=== PATIENT | male | born 1955 | race African-American/Black ===

== ENCOUNTER 2018-10-15 09:02 | Inpatient (IN) ==
[2018-10-15] MEDS ORDERED: NS 1,000 ML ONE (09:05)
[2018-10-15] MEDS ORDERED: ZOFRAN IV ONE (09:05)
[2018-10-15] MEDS ORDERED: NS 1,000 ML IV ONE ×4 (09:05→12:52)
[2018-10-15] MEDS ORDERED: ZOFRAN ONE (09:06)
[2018-10-15 09:35] LABS: HEMATOCRIT 37.7 % (42.0-52.0); HEMOGLOBIN 13.3 g/dL (14.0-18.0); IMM GRAN# 0.02 X1000 (0.0-0.04); IMM GRAN% 0.3 % (0.0-0.5); LYMPH# 0.54 X1000 (1.2-3.4); MCH 31.7 PG (27-31); MCHC 35.3 g/dL (33-37); MCV 89.8 FL (81-99); MONO# 0.22 X1000 (0.11-0.59); MONO% 3.7 % (1.7-9.3); MPV 9.2 FL (7.4-10.4); NEUT# 5.21 X1000 (1.4-6.5); PLT 182 X1000 (130-400); RDW 16.3 % (11.5-14.5); WBC 5.99 X1000 (4.8-10.8)
--- NOTE | 2018-10-15 09:38 | Diag Imaging Result Doc PS360 ---
EXAM: CHEST-PORTABLE - 10/15/2018 HISTORY: ams TECHNIQUE: Portable chest COMPARISON: 04/26/2018 FINDINGS: Heart size is normal. There is ill-defined mild infiltrate or atelectasis at the left base. The remainder of the lungs appear clear. There is no pleural effusion or pneumothorax identified. There is old fracture deformity of the posterior left seventh rib which is stable. IMPRESSION: Mild infiltrate or atelectasis at left base. Electronically signed by Austin Renee 10/15/2018 9:35 AM
[2018-10-15 09:46] LABS: INR 1.01; PROTIME 13.8 Seconds (11.0-16.0)
--- NOTE | 2018-10-15 09:46 | Diag Imaging Result Doc PS360 ---
EXAM: CT HEAD/C-SPINE W/O CONTRAST - 10/15/2018 HISTORY: ams/fall TECHNIQUE: CT head/cervical spine without contrast COMPARISON: 04/26/2018 CT head FINDINGS: CT head: There is no evidence of intracranial hemorrhage, mass effect, midline shift, or hydrocephalus. There is no evidence of infarct, although acute infarcts may not be immediately visible. There is no evidence of skull fracture. CT cervical spine: There is multilevel degenerative disease. There is no fracture, subluxation, or precervical soft tissue swelling identified. There are atherosclerotic calcifications noted of the bilateral carotid bulb regions. IMPRESSION: CT head: No visible acute intracranial abnormality. No evidence of intracranial injury. CT cervical spine: Multilevel degenerative disease. No evidence of fracture or subluxation. This exam was performed using automated exposure control, adjustment of mA or kV according to patient size, and/or use of iterative reconstruction technique. Electronically signed by Austin Renee 10/15/2018 9:44 AM
[2018-10-15 09:47] LABS: PTT 27.5 Seconds (22.3-41.8)
[2018-10-15 09:48] LABS: ALBUMIN 4.3 g/dL (3.5-5.0); CALCIUM 9.1 mg/dL (8.8-10.2); CREATININE 2.8 mg/dL (0.7-1.2); TOTAL BILIRUBIN 0.3 mg/dL (0.20-1.00); TOTAL PROTEIN 6.8 g/dL (6.3-8.3)
[2018-10-15 10:13] LABS: CK INDEX 0.1 (0.0-2.5); CK-MB 7.71 ng/mL (0.0-5.0)
[2018-10-15] MEDS ORDERED: ROCEPHIN 1 GM in NS 50 ML IV ONE (10:40)
[2018-10-15 10:57] LABS: BLOOD TYPE ARTERIAL; HCO3-(ACT) 16.3 mmoll (20.0-26.0); METHB 0.4 % (0.0-1.5); O2(CT) 17.8 mL/dL (15.0-23.0); O2HB 94.1 % (95.0-99.0); PCO2(98.6) 26 mmHg (35-45); PO2(98.6) 86 mmHg (60-100); SAMPLE BLOOD; SAO2 98.3 % (95.0-100.0); THB 13.4 g/dL (11.5-17.4); pH(98.6) 7.32 (7.35-7.45)
[2018-10-15 11:00] LABS: ALLEN TEST YES; MODALITY CANNULA
[2018-10-15] MEDS ORDERED: NS 300 ML IV ONE (11:07)
[2018-10-15] MEDS ORDERED: NS 500 ML IV ONE (11:07)
--- NOTE | 2018-10-15 11:13 | EKG Report ---
Test Performed on : 10/15/2018 09:35:32 AM Test Reason : ams Blood Pressure : / mmHG Vent. Rate : 110 BPM Atrial Rate : 110 BPM P-R Int : 146 ms QRS Dur : 090 ms QT Int : 374 ms P-R-T Axes : 091 063 025 degrees QTc Int : 506 ms Sinus tachycardia. Otherwise normal ECG When compared with ECG of 25-FEB-2017 09:57, QT has lengthened Unconfirmed Result
[2018-10-15 11:41] LABS: URINE SOURCE CATH
[2018-10-15 11:48] LABS: BILIRUBIN URINE NEGATIVE (NEGATIVE); BLOOD URINE 4+ (NEGATIVE); CLARITY CLEAR (CLEAR); COLOR YELLOW; GLUCOSE URINE NEGATIVE (NEGATIVE); KETONE URINE TRACE mg/dL (NEGATIVE); LEUKOCYTES URINE TRACE (NEGATIVE); NITRITE URINE NEGATIVE (NEGATIVE); PROTEIN URINE 1+(30 mg/dL) mg/dL (NEGATIVE); URINE BACTERIA 3+ /HFP; URINE CAST NONE SEEN /LPF; URINE CRYSTAL NONE SEEN /HPF; URINE EPITHELIAL CELLS <10 /HPF (<10); URINE RBC <10 /HPF (<10); URINE WBC <10 /HPF (<10); URINE YEAST NONE SEEN /HPF; UROBILINOGEN URINE NORMAL
[2018-10-15 11:53] LABS: UR AMPHETAMINES QUAL NONE DETECTED (NONE DETECT); UR BARBITUATES QUAL NONE DETECTED (NONE DETECT); UR BENZODIAZEPIN QUAL NONE DETECTED (NONE DETECT); UR CANNABINOIDS QUAL PRESUMPTIVE POSITIVE (NONE DETECT); UR COCAINE QUAL NONE DETECTED (NONE DETECT); UR METHADONE QUAL NONE DETECTED (NONE DETECT); UR METHAMPHETAMINE QUAL NONE DETECTED (NONE DETECT); UR OPIATES QUAL NONE DETECTED (NONE DETECT); UR OXYCODONE QUAL NONE DETECTED (NONE DETECT); UR PCP QUAL NONE DETECTED (NONE DETECT); UR PROPOXYPHENE QUAL NONE DETECTED (NONE DETECT); UR TCA QUAL PRESUMPTIVE POSITIVE (NONE DETECT)
[2018-10-15] MEDS ORDERED: NS 1,000 ML IV SCH (12:30)
[2018-10-15] MEDS ORDERED: TYLENOL PO ONE (12:51)
[2018-10-15] MEDS: ZOSYN 2.25 GM in NS 50 ML IV SCH ×2 (13:01→19:37)
[2018-10-15] MEDS: ZYVOX 600 MG/D5W 600 MG/300 ML IVPB IV SCH ×2 (13:01→23:38)
[2018-10-15 13:13] LABS: CK INDEX 0.7 (0.0-2.5); CK-MB 71.79 ng/mL (0.0-5.0)
[2018-10-15] MEDS: ZOFRAN IV PRN ×2 (13:21→19:38)
[2018-10-15] MEDS: NS 1,000 ML IV SCH ×2 (13:25→20:22)
[2018-10-15] MEDS ORDERED: ROBAXIN PO PRN (13:26)
[2018-10-15] MEDS ORDERED: ATIVAN IV PRN (13:26)
[2018-10-15] MEDS ORDERED: ATARAX PO PRN (13:26)
[2018-10-15] MEDS ORDERED: BENTYL PO PRN (13:26)
[2018-10-15] MEDS: LIBRIUM PO SCH ×2 (13:38→20:23)
--- NOTE | 2018-10-15 14:10 | EKG Report ---
Test Performed on : 10/15/2018 1:57:50 PM Test Reason : repeat Blood Pressure : / mmHG Vent. Rate : 105 BPM Atrial Rate : 105 BPM P-R Int : 156 ms QRS Dur : 106 ms QT Int : 382 ms P-R-T Axes : 068 044 043 degrees QTc Int : 504 ms Sinus tachycardia. Otherwise normal ECG When compared with ECG of 15-OCT-2018 09:35, (Unconfirmed) No significant change was found Confirmed by Delvin Dunbar MD ([id number]) on 10/19/2018 2:20:03 AM
[2018-10-15] MEDS ORDERED: M.V.I.-12 10 ML, FOLIC ACID 1 MG, MAGNESIUM SULFATE 1 GM, THIAMINE 100 MG in NS 1,000 ML IV ONE (14:30)
[2018-10-15] MEDS ORDERED: ASPIRIN EC PO PRN (16:13)
[2018-10-15] MEDS ORDERED: ZANTAC PO ONE (16:21)
--- NOTE | 2018-10-15 16:46 | PROGRESS NOTE ---
DATE: 10/15/2018 Apparently he is a pretty heavy alcoholic. Came in because he was sick with that. He is a fairly heavy drinker. He came in and he was positive for alcohol 134. He also had a CK of 10,911. It is unclear, but he may have had a seizure yesterday. He says he has had those before with alcohol withdrawal, and he has evidence of the sort with an elevated lactate level. He has been down for a prolonged period time with an elevated CK level. His physical exam is not remarkable. He has no focal complaints. He does have some fever, chest x-ray showed some left basilar pneumonia, and he was admitted for treatment. PROBLEMS: 1. Rhabdomyolysis with acute kidney injury. We will continue aggressive hydration and follow closely. 2. Pneumonia, presumably possibly aspiration type. He is on Zosyn and Zyvox, and we will follow clinically. Repeat chest x-ray tomorrow. 3. We have also got urine electrolytes to evaluate for acute kidney injury. His previous creatinines have been around 1.4 to 1.7. 4. Alcohol withdrawal syndrome. He is on Librium. We will continue to monitor for withdrawal symptoms and follow closely. 5. Encephalopathy, likely multifactorial. Could be sepsis withdrawal. We will continue to monitor. Currently on Librium and p.r.n. Ativan. We will follow closely. This is a [facility] patient. cc: Eliseo Hampton MD
--- NOTE | 2018-10-15 16:56 | HISTORY AND PHYSICAL ---
PRIMARY CARE PROVIDER: They have none listed, but he says his primary care provider is "Breonna." CHIEF COMPLAINT: Shivers. HISTORY OF PRESENT ILLNESS: Mr. Nico Donahue is a 62-year-old male with a medical history of CKD stage 3, GERD, CAD with PA, hypertension who has had a history of withdrawal seizures from alcohol abuse. States that he had like 4 to 5 beers last night and 2 tall boys already this morning after he got up. He states he got up. He sat on the couch and started having rigors and real hard tremors. Normally drinking a couple beers helps that go away, except for this time it did not. He was brought in by his sister. He has been having some green phlegm with shortness of breath for at least a month. Started having vomiting today. It is brown in nature, but he has been having normal bowel movements and no abdominal pain. Last ate was yesterday. He denies any outside work in the heat. Smoked marijuana yesterday. Been a daily smoker as well with cigarettes. He came in with these complaints and was found to have severe rhabdomyolysis with an elevated CK level. He has a normal white count, but he spiked a fever of 101 with severe rigors and a significant lactate level that was 6.1 on admission. He had an x-ray that reveals an infiltrate at the left base. He also shows signs of alcohol withdrawal with a positive plasma alcohol level that is elevated. He is hypertensive. He is febrile. He threw up today and could have aspirated as well, so he is going to be moved to the ICU to monitor for alcohol withdrawal, for severe rhabdomyolysis, and acute kidney injury on chronic kidney disease. PAST MEDICAL HISTORY: 1. CKD stage 3. 2. GERD. 3. CAD with an PA. He says about 3 or 4 myocardial infarctions, with the last 1 being in December 2017. He had a cardiac stent back in February 2017. 4. Hypertension. 5. Hyperlipidemia. 6. Cervical degenerative disk disease. 7. Withdrawal seizures about once a year. SURGICAL HISTORY: PTCA with 1 cardiac stent 03/09/2017. SOCIAL HISTORY: Nio-ptcl-zks-day smoker for 40 years. Drinks 6 beers a day for at least 40 years. Smokes marijuana less than that per week, and the last time he smoked marijuana was yesterday. Denies any other illicit drug use. FAMILY HISTORY: Mother had hypertension and coronary artery disease at the age of 73. Father had no medical history. ALLERGIES: No known drug allergies. HOME MEDICATIONS: 1. Trazodone 200 mg p.o. nightly. 2. Seroquel 150 mg p.o. nightly. 3. Tylenol 650 mg p.o. twice daily p.r.n. 4. Latanoprost per eye daily. 5. Methocarbamol or Robaxin 500 mg p.o. t.i.d. 6. Multivitamin once daily. 7. Norvasc 5 mg p.o. daily. 8. Protonix 40 mg p.o. daily. 9. Viagra 100 mg p.o. as needed for erectile dysfunction. 10. Lipitor 80 mg p.o. nightly. 11. Mirtazapine 45 mg p.o. nightly. 12. Aspirin 81 mg p.o. daily. 13. Coreg 3.125 mg p.o. twice daily. 14. Thiamin 100 mg p.o. daily. REVIEW OF SYSTEMS: Fourteen-point review of systems are complete and all were negative for those mentioned above in HPI. PHYSICAL EXAMINATION: VITAL SIGNS: Temperature 100.6 degrees, respiratory rate 27, heart rate 102, blood pressure 166/96. O2 saturation 97% on 1 L nasal cannula. GENERAL: Mr. Nico Donahue is a 62-year-old male, who is in no acute distress. He is able to answer most questions appropriately. HEENT: Atraumatic, normocephalic. Pupils are equal, round, reactive to light. Extraocular movements intact. Mucous membranes are dry. NECK: Trachea midline. CARDIOVASCULAR: S1, S2. Tachycardic rate and rhythm. No rubs, gallops, murmurs. No lower extremity edema. With +2 dorsalis and radial pulses. Negative JVD or carotid bruits. PULMONARY: Clear to auscultation. Bilateral breath sounds. No accessory muscle use or work of breathing noted. GI: Soft, nontender, nondistended. Positive bowel sounds x4. EXTREMITIES: Moves all extremities equally. Full range of motion. NEUROLOGIC: A and O x3. Follows commands. Sensory is intact. SKIN: Warm, dry, intact. LABORATORY DATA: White blood cells 5000, hemoglobin 13, hematocrit 37, platelet count 182,000. INR is 1.01. ABGs on 2.5 L with pH 7.32, pCO2 of 26, pO2 86, bicarb 16, base excess on negative 11, saturation 94%. Carboxyhemoglobin 3.9. Lactate is 4.9. Serum lactate was 6.1 and is down to 2.8. Glucose 133. BUN 13, creatinine 2.8. Sodium 139, potassium 4. Calcium 9.1, bilirubin 0.30, AST 233, ALT 78. CK 10,418. Then a repeat was 10,911. The MB went from 7.[address] up to 71.79. Troponin less than 0.01 x2. Albumin 4.3. Urinalysis with 1+ protein, 4+ blood, trace white blood cells, 3+ bacteria. Urine drug screen positive for tricyclics and cannabinoids. Alcohol was 134. IMAGING: Chest x-ray, mild infiltrate at the left base. Head and cervical spine CT. Negative acute findings on the head CT. Cervical spine had degenerative disease. EKG, sinus tachycardia with rate 110. QTc was 506. ASSESSMENT/PLAN: 1. Severe rhabdomyolysis with dehydration. He is getting aggressive IV fluid hydration. We will check his CK level daily and run IV fluids in at 200 mL an hour. There is no history of congestive heart failure. 2. Acute kidney injury on chronic kidney disease stage 3. This is secondary to dehydration most likely. We will get a renal ultrasound in the morning, and again he is getting IV fluid hydration. 3. Signs and symptoms of sepsis. He has normal white blood cells, but he is spiking a fever. It looks like he may have a left lower lobe pneumonia. He is having rigors. Lactate significantly high, and so he will be started on renal dose Zosyn and Zyvox. 4. Gastroesophageal reflux disease. We will add a PPI. 5. Alcohol abuse with signs and symptoms of withdrawal and history of seizure withdrawal. So he will be started on low-dose Librium taper, and he can get Ativan 1 mg IV q.2 hours with signs or symptoms of withdrawal. He is monitored in the ICU. 6. Tobacco abuse and marijuana abuse. Cessation discussed. Nicotine patch ordered. 7. Hyperlipidemia. He is on Lipitor at home. We may hold off on that. He does have some transaminitis. 8. History of coronary artery disease and myocardial infarction. He is on aspirin and Coreg at home. We will need to get those resumed. Of course, we are going to hold off on the statin for now due to transaminitis. 9. Transaminitis. Probably worsened due to dehydration and rhabdomyolysis. We will recheck it in the morning. 10. Hypertension. He is on Norvasc at home, but we are going to hold off on that given the acute kidney injury. 11. Deep venous thrombosis prophylaxis. Heparin. 12. Left lower lobe pneumonia or community-acquired pneumonia. Likely cause of sepsis-type symptoms. We are going to do some nebulizers and try to get a sputum culture. Dictated by VICTORIA Franco for Eliseo Hampton MD cc: VICTORIA Franco MD
[2018-10-15 17:30] LABS: UR CREAT RANDOM 67.8 mg/dL (14-26); UR PROT RANDOM 23.6 mg/dL
[2018-10-15] MEDS: ATIVAN IV PRN (19:41)
[2018-10-15] MEDS: HEPARIN SUBQ SCH (20:23)
[2018-10-15] MEDS: COREG PO SCH (20:23)
[2018-10-15] MEDS ORDERED: SEROQUEL PO SCH (21:00)
[2018-10-15] MEDS ORDERED: REMERON PO SCH (21:00)
[2018-10-15] MEDS: XOPENEX NEB INH SCH (21:50)
[2018-10-15] MEDS: ATROVENT NEB INH SCH (21:50)
[2018-10-16] MEDS: ATROVENT NEB INH SCH ×3 (03:39→15:17)
[2018-10-16] MEDS: XOPENEX NEB INH SCH ×3 (03:39→15:17)
[2018-10-16] MEDS: LIBRIUM PO SCH ×3 (03:54→13:28)
[2018-10-16] MEDS: ZOSYN 2.25 GM in NS 50 ML IV SCH ×2 (03:54→11:05)
[2018-10-16] MEDS: NS 1,000 ML IV SCH ×2 (03:55→08:59)
--- NOTE | 2018-10-16 06:43 | Diag Imaging Result Doc PS360 ---
CHEST-PORTABLE - 10/16/2018 INDICATION: dyspnea COMPARISON: 10/15/2018 FINDINGS: There are new bibasilar infiltrates. These are ill-defined and alveolar. Heart size is top normal. Lung volumes remain low. No pneumothorax or pleural effusion. IMPRESSION: Low lung volumes. Indeterminate bibasilar infiltrates. These may represent atelectasis, pneumonia or aspiration. Electronically signed by Bruno Tuttle 10/16/2018 6:41 AM
[2018-10-16] MEDS ORDERED: PROTONIX PO SCH (07:00)
[2018-10-16 07:53] LABS: BASO# 0.01 X1000 (0.0-0.2); BASO% 0.2 % (0.0-0.8); EOS# 0.02 X1000 (0.0-0.7); EOS% 0.3 % (0.0-10.0); HEMATOCRIT 32.5 % (42.0-52.0); HEMOGLOBIN 11.3 g/dL (14.0-18.0); IMM GRAN# 0.03 X1000 (0.0-0.04); IMM GRAN% 0.5 % (0.0-0.5); LYMPH# 0.47 X1000 (1.2-3.4); LYMPH% 7.3 % (20.5-51.1); MCH 31.4 PG (27-31); MCHC 34.8 g/dL (33-37); MCV 90.3 FL (81-99); MONO% 3.1 % (1.7-9.3); MPV 9.7 FL (7.4-10.4); NEUT# 5.69 X1000 (1.4-6.5); NEUT% 88.6 % (42.2-75.2); PLT 151 X1000 (130-400); RDW 16.6 % (11.5-14.5); WBC 6.42 X1000 (4.8-10.8)
[2018-10-16 08:23] LABS: ALBUMIN 2.9 g/dL (3.5-5.0); CALCIUM 7.3 mg/dL (8.8-10.2); CREATININE 1.5 mg/dL (0.7-1.2); MAGNESIUM 1.9 mg/dL (1.5-2.7); POTASSIUM 4.3 mmol/L (3.5-5.1); TOTAL BILIRUBIN 0.3 mg/dL (0.20-1.00); TOTAL PROTEIN 4.9 g/dL (6.3-8.3)
[2018-10-16 08:57] LABS: CK INDEX 0.6 (0.0-2.5); CK-MB 49.08 ng/mL (0.0-5.0)
[2018-10-16] MEDS: COREG PO SCH (08:59)
[2018-10-16] MEDS ORDERED: ASPIRIN EC PO SCH (09:00)
[2018-10-16] MEDS ORDERED: THERA M PLUS PO SCH (09:00)
[2018-10-16] MEDS ORDERED: XALATAN 0.005% OPH SOLN OPH SCH (09:00)
[2018-10-16] MEDS: HEPARIN SUBQ SCH (09:00)
[2018-10-16] MEDS ORDERED: VITAMIN B-1 PO SCH (09:00)
[2018-10-16 09:03] LABS: INR 1.2; PROTIME 15.8 Seconds (11.0-16.0); PTT 38.5 Seconds (22.3-41.8)
--- NOTE | 2018-10-16 09:23 | Diag Imaging Result Doc PS360 ---
US RENAL 2 (RETROPER) COMPLETE - 10/16/2018 INDICATION: miranda/ckd TECHNIQUE: COMPARISON: None FINDINGS: The kidneys and urinary bladder are normal. The right kidney measures 11.1 x 4.3 x 4.2 cm. The left kidney measures 11 x 4.5 x 5 cm. Cortex measures about 1 cm bilaterally. There is a Cowan catheter in the urinary bladder. IMPRESSION: Negative exam. Electronically signed by Bruno Tuttle 10/16/2018 9:20 AM
[2018-10-16 09:45] LABS: BANDS 10 % (0-1); LYMPHS 5 % (21-51); MONO 2 % (1-9); SEGS 83 % (42-75)
[2018-10-16] MEDS ORDERED: APRESOLINE IV PRN (11:06)
[2018-10-16] MEDS: ZYVOX 600 MG/D5W 600 MG/300 ML IVPB IV SCH (11:33)
[2018-10-16] MEDS: ATIVAN IV PRN (13:30)
[2018-10-16] MEDS ORDERED: NICODERM PATCH TD ONE (14:16)
[2018-10-16 16:50] VITALS: BP 151/92
--- NOTE | 2018-10-17 06:26 | DISCHARGE SUMMARY ---
ADMISSION DATE: 10/15/2018 DISCHARGE DATE: 10/16/2018 DISCHARGE DIAGNOSES: 1. Patient left against medical advice. Certainly, would prefer him to stay in the hospital longer. 2. Rhabdomyolysis with dehydration. CPK is still elevated. 3. Acute kidney injury on chronic stage 3 kidney disease. 4. Chronic alcohol abuse with current withdrawal symptoms. 5. Chronic tobacco abuse. 6. Chronic marijuana abuse. 7. Polysubstance use and abuse. 8. Known coronary artery disease with a history of myocardial infarction. 9. Transaminitis. 10. Hypernatremia. 11. Hypertension. CONSULTATIONS: None. PROCEDURES: None. BRIEF HOSPITAL COURSE: The patient was admitted to the hospital, and was placed on Librium to assist with his alcohol withdrawal. He also was noted to be in rhabdo with a CPK of 10,900, and was placed on IV fluids. Unfortunately, patient refused to stay in the hospital for full treatment. Certainly, he should be considered on a bicarb drip to assist with his rhabdo, although patient has refused. Patient stated "I signed myself in, I can sign myself out" as he is awake, alert, and oriented. We are unable to force him to stay in the hospital. cc: Duarte Christensen MD
[2018-10-17] MEDS ORDERED: NICODERM PATCH TD SCH (09:00)
--- NOTE | 2018-10-19 04:20 | PROGRESS NOTE ---
DATE: 10/18/2018 SUBJECTIVE: Patient is still confused, disoriented. OBJECTIVE: Vital Signs: Reviewed. Temp 99 degrees, pulse 109, respiratory 18, BP 161/101. General: Patient is awake, in no current respiratory distress. He is not oriented, is still easily confused. HEENT: Normocephalic. Neck: Supple. Cardiovascular: Regular rate. Chest: Clear. No crackles. Abdomen: Soft, nondistended. Extremities: Moves all extremities. ASSESSMENT: 1. Acute alcohol withdrawal. 2. Rhabdomyolysis. 3. Acute kidney injury. 4. Fever. 5. Recent seizure. 6. Sepsis. 7. Hyperlipidemia. 8. Transaminitis. 9. Hypokalemia. 10. Hypernatremia, resolved. PLAN: Continue patient in the hospital. Continue high-dose Librium taper. Continue counseling. Further orders as needed. We will continue to follow liver functions as well. TIME SPENT: Forty minutes was spent in total care. cc: Duarte Christensen MD
== END 2018-10-16 16:00 | disposition left against medical advice (07) | DRG 682 ==
LOC: SUPCPDRO → P.ED 09:02 → P.ICU 10:55 → SUATTDRO 10:55
PROVIDERS: ATTEND Family Medicine
CPT/HCPCS: 70450; 71010; 71045; 72125; 76770; 80053; 80104; 80301; 80305; 80307; 80320; 81001; 82055; 82550; 82553; 82570; 82805; 82948; 83605; 83735; 84156; 84300; 84443; 84484; 84540; 85025; 85610; 85730; 87040; 87070; 87077; 87205; 89220; 93005; 94640; A9270; G0431; G0434; G0477; G0480; G6040; J0360; J0696; J1644; J2020; J2060; J2405; J2543; J3411; J3475; J7030; XXXXX

== ENCOUNTER 2018-10-16 18:44 | Inpatient (IN) ==
[2018-10-16] MEDS ORDERED: ATIVAN IV ONE (19:29)
[2018-10-16] MEDS ORDERED: NS 1,000 ML IV ONE (19:32)
--- NOTE | 2018-10-16 20:01 | PROVIDER DOCUMENTATION ---
This chart was entered by Ioana Brar Scribe, acting as scribe for Reji Mcgrath MD. HPI-General Adult - General Chief Complaint: Fall Stated Complaint: falls, signed out AMA from ICU Time Seen by Provider: 10/16/18 19:23 Source: patient Allergies/Adverse Reactions: Patient Allergies Allergy/AdvReac Type Severity Reaction Status Date / Time No Known Allergies Allergy Verified 10/15/18 09:45 Home Medications: Home Medication List Medication Instructions Recorded Confirmed Last Taken Type ATORVAstatin [Lipitor] 80 mg PO QHS #30 tab 02/25/17 10/15/18 Unknown Rx Aspirin EC 81 mg PO DAILY #30 tab 02/25/17 10/15/18 Unknown Rx Carvedilol 3.125 mg PO BID #60 tab 02/25/17 10/15/18 Unknown Rx Methocarbamol 500 mg PO TID PRN PRN 02/25/17 10/15/18 Unknown History Mirtazapine 45 mg PO QHS #30 tab 02/25/17 10/15/18 Unknown Rx Pantoprazole [Protonix] 40 mg PO DAILY@0700 02/25/17 10/15/18 Unknown History Sildenafil [Viagra] 100 mg PO PRN PRN MDD 1 dose in 24 02/25/17 10/15/18 Unknown History hours Thiamine [Vitamin B-1] 100 mg PO DAILY #30 tab 02/25/17 10/15/18 Unknown Rx Acetaminophen 650 mg PO Q12H PRN PRN 10/15/18 10/15/18 Unknown History Amlodipine [Norvasc] 5 mg PO DAILY 10/15/18 10/15/18 Unknown History Latanoprost/Pf [Latanoprost 0.005% 7.5 ml OPHTHALMIC (EYE) DAILY 10/15/18 10/15/18 Unknown History Eye Drop] Multivitamin [Multivitamins] 1 ea PO DAILY 10/15/18 10/15/18 Unknown History Quetiapine [Seroquel] 150 mg PO QHS 10/15/18 10/15/18 Unknown History Trazodone [Desyrel] 200 mg PO QHS 10/15/18 10/15/18 Unknown History - History of Present Illness -Gen Adult Nature of Presenting Problems: pt is a 62 yr old male presenting via EMS. 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 pt admitted 1 day ago to ICU for rhabdomyolisis, NILSON, alcohol withdrawal, seizures, pneumonia. pt reportedly pulled his IV out and left AMA this afternoon. pt hx of alcoholism, cocaine abuse, alcohol withdrawal induced seizures. pt agitated and unsteady. 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 Location of Pain/Injury: reports: neck Pain Radiation: reports: no radiation Quality of Pain: reports: aching Severity: reports: moderate Onset/Duration: reports: unsure Timing: reports: still present Context/Activities at Onset: reports: recent trauma history (multiple falls, seizure activity) Modifying Factors: improves with: nothing Associated Symptoms: reports: back/neck pain, seizure, trouble walking Similar Symptoms Previously?: Yes Recently seen or treated by another doctor?: Yes (admitted here yesterday-left AMA today) Review of Systems - Adult - REVIEW OF SYSTEMS - ADULT Constitutional: reports: falguni. denies: fever Eyes: denies: blurred vision, double vision Ears, Nose, Mouth & Throat: denies: ear pain, sinus problem, throat pain Cardiovascular: denies: chest pain, palpitations, syncope Respiratory: denies: cough, shortness of breath Gastrointestinal: denies: abdominal pain, diarrhea, nausea, vomiting Genitourinary: reports: no symptoms reported Musculoskeletal: reports: neck pain. denies: back pain, joint pain Integumentary: reports: no symptoms reported Neurological: reports: dizziness/vertigo, loss of balance, seizure. denies: headache/migraines Psychiatric: reports: alcohol/drug dependence Endocrine: reports: no symptoms reported Hematologic/Lymphatic: reports: no symptoms reported Allergic/Immunologic: reports: no symptoms reported All Other Systems: Reviewed and Negative Past History - Adult - PAST MEDICAL HISTORY-ADULT Review of Records: reports: Old Records Reviewed, Nursing Assessment Review, Medications Reviewed, Social history reviewed & non-contributory. Major Childhood Illnesses: reports: denies history Cardiovascular: reports: CAD, HTN, hyperlipidemia Respiratory: reports: denies history Gastrointestinal: reports: GERD Obstetrical/Gynecological: reports: denies history Genitourinary: reports: denies history Musculoskeletal: reports: denies history Neurological: reports: denies history Psychiatric: reports: denies history Endocrine/Immune: reports: denies history Other Conditions: reports: denies history - PRIOR SURGERIES/PROCEDURES Surgical/Procedure History: reports: cardiac stent - IMMUNIZATION STATUS Childhood Immunizations: See Nurse Assessment Flu Vaccine: See Nurse Assessment - FAMILY HISTORY Family History: reviewed, not pertinent - SOCIAL HISTORY Smoking: cigarettes Substance Use: alcohol Living Situation: family Physical Exam-General - PHYSICAL EXAM-ADULT Initial Vital Signs Reviewed: Yes - CONSTITUTIONAL General Appearance: no apparent distress, other (agitated, unsteady) - EYES Eyes: PERRL/EOMI - HEAD, EARS, NOSE, MOUTH & THROAT HENMT: normocephalic/atraumatic, moist mucous membranes - NECK Neck: tender lateral (right) - RESPIRATORY Respiratory: chest non-tender, lungs clear, normal breath sounds - CARDIOVASCULAR Cardiovascular: normal peripheral pulses, regular rate, rhythm, no edema - GASTROINTESTINAL (ABDOMEN) Abdominal Exam: normal bowel sounds, non tender, soft - LYMPHATIC Lymphatic: no adenopathy - MUSCULOSKELETAL Back Exam: normal inspection Extremity: normal range of motion, non-tender, normal gait, normal inspection - SKIN Integumentary: normal color, normal turgor, warm/dry - PSYCHIATRIC Psych/Mental Status: other (agitated) Progress - PLAN OF CARE/RESULTS Progress/Plan/Lab Results: Vital Signs - 8 hr 10/16/18 18:47 Pulse Rate 102 H Respiratory Rate 29 H Blood Pressure 177/111 O2 Sat by Pulse Oximetry 97 Orders Category Date Time Status Seizure Precautions ROUTINE Care 10/16/18 19:29 Active Lorazepam [Ativan] Med 10/16/18 19:29 Discontinued 1 mg IV NOW ONE - CONSULTS/PCP/HOSPITALIST Notification #1 *Consult/PCP/Hospitalist*: Dr Christensen Time Discussed: 19:30 Reason/Comments: plan of care for PT admit Consult Disposition: Admit (to ICU) Departure - Departure Date of Disposition Decision: 10/16/18 Time of Disposition Decision: 19:51 DIAGNOSIS: Seizure disorder Alcohol dependence Qualifiers: Substance use status: unspecified alcohol-induced disorder Qualified Code(s): F10.29 - Alcohol dependence with unspecified alcohol-induced disorder Rhabdomyolysis Qualifiers: Rhabdomyolysis type: traumatic Encounter type: subsequent encounter Qualified Code(s): T79.6XXD - Traumatic ischemia of muscle, subsequent encounter Disposition: ADMITTED INPATIENT 09 Certified Medical Emergency: Emergent Condition: Stable - Critical Care Note This patient required my direct & personal management of CC.: No Attestation - Physician/ ASHA Attestation Patient care was provided by Advanced Practice Provider:: No The physician spent face to face time with patient:: Yes Advanced Practice Provider documentation review:: Supervising physician onsite and consulted in the evaluation and care of this patient. The physician did have a face to face encounter with the patient. This chart was documented by the indicated scribe, (Ioana Brar, Juan M) and accurately reflects the services I performed and decisions made by me, Reji Mcgrath MD, as attested by the provider's signature.
[2018-10-16 21:58] LABS: BASO# 0.01 X1000 (0.0-0.2); BASO% 0.1 % (0.0-0.8); EOS# 0.05 X1000 (0.0-0.7); EOS% 0.5 % (0.0-10.0); HEMATOCRIT 33.1 % (42.0-52.0); HEMOGLOBIN 11.6 g/dL (14.0-18.0); IMM GRAN# 0.25 X1000 (0.0-0.04); IMM GRAN% 2.6 % (0.0-0.5); LYMPH# 0.63 X1000 (1.2-3.4); LYMPH% 6.6 % (20.5-51.1); MCH 31.8 PG (27-31); MCV 90.7 FL (81-99); MONO% 3.1 % (1.7-9.3); MPV 9.3 FL (7.4-10.4); NEUT# 8.34 X1000 (1.4-6.5); NEUT% 87.1 % (42.2-75.2); PLT 129 X1000 (130-400); RBC 3.65 XMIL (4.7-6.1); RDW 16.4 % (11.5-14.5); WBC 9.58 X1000 (4.8-10.8)
[2018-10-16] MEDS: ATIVAN IV PRN (22:07)
[2018-10-16 22:10] LABS: UR AMPHETAMINES QUAL NONE DETECTED (NONE DETECT); UR BARBITUATES QUAL NONE DETECTED (NONE DETECT); UR BENZODIAZEPIN QUAL PRESUMPTIVE POSITIVE (NONE DETECT); UR CANNABINOIDS QUAL PRESUMPTIVE POSITIVE (NONE DETECT); UR COCAINE QUAL NONE DETECTED (NONE DETECT); UR METHADONE QUAL NONE DETECTED (NONE DETECT); UR METHAMPHETAMINE QUAL NONE DETECTED (NONE DETECT); UR OPIATES QUAL NONE DETECTED (NONE DETECT); UR OXYCODONE QUAL NONE DETECTED (NONE DETECT); UR PCP QUAL NONE DETECTED (NONE DETECT); UR PROPOXYPHENE QUAL NONE DETECTED (NONE DETECT); UR TCA QUAL PRESUMPTIVE POSITIVE (NONE DETECT)
[2018-10-16 23:07] LABS: CK INDEX 0.2 (0.0-2.5); CK-MB 14.32 ng/mL (0.0-5.0)
[2018-10-17] MEDS: ATIVAN IV PRN ×8 (00:02→22:28)
[2018-10-17 07:01] LABS: BILIRUBIN URINE NEGATIVE (NEGATIVE); BLOOD URINE 4+ (NEGATIVE); CLARITY CLEAR (CLEAR); COLOR YELLOW; GLUCOSE URINE NEGATIVE (NEGATIVE); KETONE URINE TRACE mg/dL (NEGATIVE); LEUKOCYTES URINE TRACE (NEGATIVE); NITRITE URINE NEGATIVE (NEGATIVE); PH URINE 6.5; PROTEIN URINE TRACE mg/dL (NEGATIVE); SP GRAVITY URINE 1.005; URINE RBC TNTC /HPF (<10); UROBILINOGEN URINE NORMAL
[2018-10-17 07:04] LABS: URINE BACTERIA NEGATIVE /HFP; URINE CAST NONE SEEN /LPF; URINE CRYSTAL NONE SEEN /HPF; URINE EPITHELIAL CELLS >10 /HPF (<10); URINE SOURCE CATH; URINE YEAST NONE SEEN /HPF
[2018-10-17] MEDS ORDERED: BENTYL PO PRN (07:34)
[2018-10-17] MEDS ORDERED: SALINE LOCK IV FLUID XX ONE (07:34)
[2018-10-17] MEDS ORDERED: TYLENOL PO PRN (07:34)
[2018-10-17 08:25] LABS: HEMATOCRIT 33.9 % (42.0-52.0); HEMOGLOBIN 12.2 g/dL (14.0-18.0); MCH 32.1 PG (27-31); MCV 89.2 FL (81-99); MPV 9.6 FL (7.4-10.4); RBC 3.8 XMIL (4.7-6.1); RDW 15.8 % (11.5-14.5); WBC 12.27 X1000 (4.8-10.8)
[2018-10-17] MEDS: ZOSYN 3.375 GM in NS 50 ML IV SCH ×3 (08:56→19:50)
[2018-10-17] MEDS: LIBRIUM PO SCH ×3 (08:56→19:52)
[2018-10-17] MEDS: ZYVOX PO SCH ×2 (08:57→20:34)
[2018-10-17] MEDS ORDERED: LIBRIUM PO SCH (09:00)
[2018-10-17] MEDS ORDERED: M.V.I.-12 10 ML, FOLIC ACID 1 MG, MAGNESIUM SULFATE 1 GM, THIAMINE 100 MG in NS 1,000 ML IV ONE (09:00)
[2018-10-17 09:01] LABS: AGAP 12; ALBUMIN 3.4 g/dL (3.5-5.0); ALKALINE PHOSPHATASE 70 U/L (32-122); BUN 8 mg/dL (8-22); CALCIUM 8.8 mg/dL (8.8-10.2); CHLORIDE 102 mmol/L (98-107); COSMO 268; CREATININE 1.2 mg/dL (0.7-1.2); ESTIMATED GFR > 60; GLUCOSE 83 mg/dL (70-104); GOT 299 U/L (10-34); GPT 118 U/L (10-44); MAGNESIUM 1.7 mg/dL (1.5-2.7); POTASSIUM 3.2 mmol/L (3.5-5.1); SODIUM 135 mmol/L (136-145); TCO2 21 mmol/L (25-35); TOTAL PROTEIN 6.6 g/dL (6.3-8.3)
[2018-10-17 09:31] LABS: CK INDEX 0.1 (0.0-2.5); CK-MB 9.42 ng/mL (0.0-5.0)
[2018-10-17] MEDS: ATARAX PO PRN (10:36)
[2018-10-17] MEDS: ROBAXIN PO PRN (10:36)
--- NOTE | 2018-10-17 18:11 | Diag Imaging Result Doc PS360 ---
EXAM: CHEST-PORTABLE HISTORY: ?aspiration TECHNIQUE: Chest single view COMPARISON: 10/16/2018 FINDINGS: Poor inspiratory effort. The heart is not enlarged. The vessels are not distended. Improvement in the basilar infiltrates or atelectasis. No effusion identified. IMPRESSION: Interval improvement Electronically signed by Geoff Baird 10/17/2018 6:09 PM
[2018-10-17 19:53] LABS: CK INDEX 0.1 (0.0-2.5); CK-MB 6.48 ng/mL (0.0-5.0)
[2018-10-17] MEDS: APRESOLINE IV PRN (20:35)
--- NOTE | 2018-10-18 00:56 | PROGRESS NOTE ---
DATE: 10/17/2018 SUBJECTIVE: Patient is a little more calm this morning than he was yesterday. He denies any current complaints otherwise. OBJECTIVE: Vital signs: Temperature 98, pulse 109, respiratory 18, BP 161/109. General: The patient is having rhonchorous air sounds with some mild crackles bilaterally. He is in mild distress. Neurologic: Unable to assess. Does not appear to have any focal changes, although patient does not answer questions nor follow commands. HEENT: Normocephalic, atraumatic. Neck: Supple. Cardiovascular: Regular rate. Chest: Positive rhonchorous air sounds throughout. No current crackles. Abdomen: Soft, nondistended. Extremities: Moves all extremities. ASSESSMENT: 1. Rhabdomyolysis. CPK was 10,900, currently down to 8,500. 2. Probable sepsis. 3. Alcohol abuse, withdrawal and stabilization. 4. Acute kidney injury. 5. Hypernatremia. 6. Presumed pneumonia. PLAN: We will continue patient in the ICU. High-dose Librium taper, Zyvox, and Zosyn, breathing treatments, oxygen, and will follow. cc: Duarte Christensen MD
[2018-10-18] MEDS: ZOSYN 3.375 GM in NS 50 ML IV SCH ×4 (01:10→19:22)
[2018-10-18] MEDS: APRESOLINE IV PRN ×3 (04:18→17:17)
[2018-10-18] MEDS: LIBRIUM PO SCH ×4 (05:15→22:13)
[2018-10-18] MEDS: ZYVOX PO SCH ×2 (09:18→21:48)
[2018-10-18 10:08] LABS: HEMATOCRIT 35.5 % (42.0-52.0); HEMOGLOBIN 12.4 g/dL (14.0-18.0); MCH 31.3 PG (27-31); MCHC 34.9 g/dL (33-37); MCV 89.6 FL (81-99); MPV 8.8 FL (7.4-10.4); RBC 3.96 XMIL (4.7-6.1); WBC 12.9 X1000 (4.8-10.8)
[2018-10-18] MEDS: ATIVAN IV PRN ×3 (10:16→19:22)
[2018-10-18 10:51] LABS: ALBUMIN 3.5 g/dL (3.5-5.0); CALCIUM 8.9 mg/dL (8.8-10.2); CREATININE 1.3 mg/dL (0.7-1.2); MAGNESIUM 2.1 mg/dL (1.5-2.7); POTASSIUM 3.4 mmol/L (3.5-5.1); TOTAL BILIRUBIN 1.1 mg/dL (0.20-1.00); TOTAL PROTEIN 6.9 g/dL (6.3-8.3)
[2018-10-19] MEDS: ATIVAN IV PRN ×5 (02:32→23:05)
[2018-10-19] MEDS: ZOSYN 3.375 GM in NS 50 ML IV SCH ×4 (02:35→20:25)
[2018-10-19] MEDS: ZOFRAN IV PRN (04:10)
[2018-10-19] MEDS: LIBRIUM PO SCH ×4 (06:27→20:25)
--- NOTE | 2018-10-19 07:59 | Diag Imaging Result Doc PS360 ---
EXAM: CHEST-PORTABLE HISTORY: dyspnea TECHNIQUE: Chest single view COMPARISON: 10/17/2018 FINDINGS: The lungs are well expanded. The heart is not enlarged. The vessels are not distended. There are no infiltrates. No effusion identified. IMPRESSION: Negative exam. Electronically signed by Geoff Baird 10/19/2018 7:56 AM
[2018-10-19] MEDS: ZYVOX PO SCH ×2 (09:00→20:25)
[2018-10-19] MEDS: APRESOLINE IV PRN ×2 (09:21→22:17)
[2018-10-19] MEDS: ATARAX PO PRN (22:18)
[2018-10-20] MEDS: ATIVAN IV PRN ×5 (01:04→19:40)
[2018-10-20] MEDS: LIBRIUM PO SCH ×3 (01:05→20:48)
[2018-10-20] MEDS: ZOSYN 3.375 GM in NS 50 ML IV SCH ×4 (02:26→19:47)
[2018-10-20] MEDS: ATARAX PO PRN (18:11)
[2018-10-20] MEDS: ZOFRAN IV PRN (19:40)
[2018-10-20] MEDS: ROBAXIN PO PRN (19:40)
[2018-10-21] MEDS: ZOFRAN IV PRN ×2 (00:15→19:22)
[2018-10-21] MEDS: ATIVAN IV PRN ×6 (00:15→21:22)
--- NOTE | 2018-10-21 00:26 | PROGRESS NOTE ---
DATE: 10/20/2018 SUBJECTIVE: Patient is still confused and somewhat disoriented. He is in no distress. He is calm. He is no longer fighting with staff. OBJECTIVE: Vital signs: Temp 98, pulse 107, respiratory 18, BP 132/82. General: Patient is calm. He is improved, although still disoriented. HEENT: Normocephalic. Neck: Supple. Cardiovascular: Regular rate. No murmurs. Chest: Clear. Positive rhonchi but no wheezing, no crackles, nonlabored. Abdomen: Soft, nondistended. Extremities: Moves all extremities. Trace edema. Neurologic: Unable to assess as patient is confused, although he is noted to move all extremities. Cranial nerves 2-12 are grossly intact. ASSESSMENT: 1. Transaminase elevation. Both his AST and ALT are improving. 2. Hypernatremia. 3. Hypokalemia. 4. Febrile illness. 5. Pneumonia. Improved, recent chest x-ray was clear. 6. Severe rhabdomyolysis. CPK currently pending. 7. Chronic alcohol abuse. We will continue Librium taper. PLAN: We will continue patient in the hospital. Unfortunately, he is frequently requiring soft restraints due to confusion, disorientation, and harm to himself and others. We will continue Librium taper. Continue antibiotics, oxygen. Further orders as needed. cc: Duarte Christensen MD
[2018-10-21] MEDS: ZOSYN 3.375 GM in NS 50 ML IV SCH ×4 (01:16→19:22)
[2018-10-21] MEDS: LIBRIUM PO SCH (08:32)
[2018-10-21 08:34] LABS: HEMATOCRIT 31.2 % (42.0-52.0); HEMOGLOBIN 11.1 g/dL (14.0-18.0); MCH 31.9 PG (27-31); MCHC 35.6 g/dL (33-37); MCV 89.7 FL (81-99); RBC 3.48 XMIL (4.7-6.1); RDW 15.6 % (11.5-14.5); WBC 5.8 X1000 (4.8-10.8)
[2018-10-21 08:54] LABS: AGAP 9; ALBUMIN 3.5 g/dL (3.5-5.0); ALKALINE PHOSPHATASE 72 U/L (32-122); BUN 13 mg/dL (8-22); CHLORIDE 106 mmol/L (98-107); COSMO 279; ESTIMATED GFR > 60; GLUCOSE 97 mg/dL (70-104); GOT 69 U/L (10-34); GPT 66 U/L (10-44); MAGNESIUM 2.1 mg/dL (1.5-2.7); POTASSIUM 3.3 mmol/L (3.5-5.1); SODIUM 140 mmol/L (136-145); TCO2 24 mmol/L (25-35); TOTAL PROTEIN 6.7 g/dL (6.3-8.3)
[2018-10-21] MEDS: ROBAXIN PO PRN ×2 (11:32→19:24)
[2018-10-21] MEDS: ATARAX PO PRN ×2 (11:32→19:22)
[2018-10-21] MEDS ORDERED: NS 500 ML IV ONE (14:37)
[2018-10-21] MEDS: NS 1,000 ML IV SCH (21:14)
--- NOTE | 2018-10-21 22:47 | PROGRESS NOTE ---
DATE: 10/21/2018 SUBJECTIVE: Patient is still confused. He continues to ask if we can hire him for our job opening. PHYSICAL EXAMINATION: Vital Signs: Temperature 97.3 degrees, pulse 64, respiratory 27, BP 108/66. General: Patient is awake. He is in no respiratory distress. He is confused, disoriented. Currently, he is calm. HEENT: Normocephalic. Neck: Supple. Cardiovascular: Regular rate. Chest: Decreased but equal breath sounds bilaterally. No wheezing. Abdomen: Soft, nondistended. Extremities: Moves all extremities. Neurologic: Patient currently is calm although he frequently becomes agitated and sometimes violent and therefore he is requiring restraints. ASSESSMENT: 1. Rhabdomyolysis. CPK is pending. 2. Dehydration, appears resolved. 3. Acute on chronic stage 3 kidney disease. 4. Pneumonia. 5. Alcohol abuse and withdrawal. Patient currently appears to be having alcoholic hallucinosis as he is hallucinating at times. He is confused, disoriented. 6. Known coronary artery disease status post myocardial infarction. 7. Transaminitis. His AST and ALT both are decreasing. 8. Hypernatremia, resolved. 9. Hypokalemia, continues to improve. PLAN: We will continue patient on Zosyn. Continue to wean Librium. Continue to follow his liver functions. Recheck a CPK and follow. Most likely, his confusion is due to his alcohol withdrawal which certainly was worsened when he left [facility] prior to coming back. We will continue to follow. Further orders as needed. cc: Duarte Christensen MD
[2018-10-22] MEDS: ZOFRAN IV PRN ×2 (01:14→20:33)
[2018-10-22] MEDS: ZOSYN 3.375 GM in NS 50 ML IV SCH ×4 (01:14→20:29)
[2018-10-22] MEDS: ROBAXIN PO PRN ×2 (01:15→20:28)
[2018-10-22] MEDS: ATIVAN IV PRN ×4 (01:15→20:29)
[2018-10-22] MEDS: NS 1,000 ML IV SCH ×3 (04:22→20:29)
[2018-10-22 06:41] LABS: ESTIMATED GFR > 60
[2018-10-22 06:46] LABS: AGAP 11; BUN 9 mg/dL (8-22); CALCIUM 8.6 mg/dL (8.8-10.2); CHLORIDE 112 mmol/L (98-107); CK TOTAL 1830 U/L (24-204); COSMO 286; GLUCOSE 79 mg/dL (70-104); POTASSIUM 3.3 mmol/L (3.5-5.1); SODIUM 145 mmol/L (136-145); TCO2 23 mmol/L (25-35)
[2018-10-22] MEDS ORDERED: LIBRIUM PO SCH (09:00)
[2018-10-22] MEDS: NICODERM PATCH TD SCH (18:32)
[2018-10-23] MEDS: ZOSYN 3.375 GM in NS 50 ML IV SCH ×3 (01:38→13:16)
[2018-10-23] MEDS: ATIVAN IV PRN (01:38)
[2018-10-23] MEDS: NICODERM PATCH TD SCH (08:54)
[2018-10-23] MEDS ORDERED: COREG PO ONE ×3 (10:15→13:15)
[2018-10-23] MEDS ORDERED: KLOR-CON PO ONE ×2 (10:16→13:15)
[2018-10-23] MEDS ORDERED: NORVASC PO ONE ×2 (10:16→13:15)
[2018-10-23] MEDS ORDERED: APRESOLINE IV PRN (15:21)
[2018-10-23] MEDS ORDERED: LABETALOL IV ONE (15:23)
[2018-10-23 17:19] VITALS: BP 146/93
--- NOTE | 2018-10-23 18:27 | DISCHARGE SUMMARY ---
ADMISSION DATE: 10/16/2018 DISCHARGE DATE: 10/23/2018 ADMISSION DIAGNOSIS: 1. Severe rhabdomyolysis with dehydration. 2. Acute kidney injury on chronic kidney disease stage 3. 3. Signs and symptoms of sepsis. 4. Gastroesophageal reflux disease. 5. Alcohol abuse with signs and symptoms of withdrawal and history of seizure withdrawal. 6. Tobacco and marijuana abuse. 7. Hyperlipidemia. 8. Hypertension. DISCHARGE DIAGNOSIS: 1. Rhabdomyolysis improved. 2. Alcohol abuse and withdrawal improved. 3. Chronic alcoholism. 4. Alcoholic hepatitis. 5. Hypernatremia resolved. 6. Hypokalemia improved. 7. Acute agitation secondary to chronic alcohol abuse and withdrawal resolved. 8. Hypertension. 9. High cholesterol. SUMMARY OF FINDINGS: This is a 62-year-old male who presented to the emergency room after having 4 to 5 beers and 2 tall boys during the night and the morning of [facility] he sat on the couch and began having rigors and really hard tremors, normally drinking a couple of beers helps that go away but this time it did not. He was brought in by his sister and began vomiting. [facility] he smoked marijuana the day prior and is a cigarette smoker as well. He had an x-ray that revealed an infiltrate at the left base. He showed signs of alcohol withdrawal with a positive plasma alcohol level that was elevated. He was hypertensive. He was admitted to the intensive care unit, placed on IV hydration as his CPK was 8774 with a CK-MB of 14.32. He was placed on IV antibiotics, given Librium taper low dose and Ativan 1 mg IV q.2 hours for signs and symptoms of alcohol withdrawal. He was given a nicotine patch to prevent any nicotine withdrawal and he was admitted to intensive care. He left [facility] on 10/16/2018 but came back later that night and was readmitted so we kept the same admission apparently. Now he is doing much better. He is alert, awake. His CPKs are down to 1830. His sodium has returned to normal at 145. His potassium is still mildly low at 3.3 but he has been walking around in the intensive care unit without any issues and it is felt that he can safely be discharged home today. DISCHARGE MEDICATIONS: Tylenol 650 mg p.o. q.12 hours p.r.n., Norvasc 5 mg p.o. b.i.d., aspirin 81 mg p.o. daily, atorvastatin 80 mg p.o. at bedtime, Coreg 6.25 mg p.o. b.i.d., Latanoprost 0.005% ophthalmic daily, mirtazapine 45 mg p.o. at bedtime, multivitamin p.o. daily, quetiapine 150 mg p.o. at bedtime, sildenafil 100 mg p.o. p.r.n., thiamine 100 mg p.o. daily and trazodone 200 mg p.o. at bedtime. FOLLOWUP: He will need to obtain a primary care physician and have a CMP and CKs repeated at the time [facility] that was already [facility]. TIME SPENT: 35 minutes. Dictated by VICTORIA Mendez for Bong Muller MD Addendum: Patient seen and examined by myself. Agree with VICTORIA note. It reflects my assessment and plan. Patient is being discharged in stable condition to home. Refills for blood pressure meds has been provided. cc: VICTORIA Mendez MD [facility]
== END 2018-10-23 18:16 | disposition home or self-care (01) | DRG 896 ==
LOC: P.ED 18:44 → P.ICU 19:58 → SUATTDRO 19:58
PROVIDERS: ATTEND Internal Medicine
CPT/HCPCS: 71010; 71045; 80048; 80053; 80104; 80301; 80305; 80307; 80320; 81001; 82055; 82550; 82553; 83735; 85025; 85027; 87088; 96374; 97110; 97162; 97530; 99285; A9270; G0431; G0434; G0477; G0480; G6040; J0360; J2060; J2405; J2543; J3411; J3475; J7030; J7040

== ENCOUNTER 2019-02-08 05:28 | Inpatient (IN) ==
--- NOTE | 2019-02-08 05:59 | PROVIDER DOCUMENTATION ---
GYO-[id number] Abuse/Overdose - General Chief Complaint: Intoxicated Stated Complaint: POSS - ANXIETY ATTACK Time Seen by Provider: 02/08/19 05:34 Source: patient Allergies/Adverse Reactions: Allergies Allergy/AdvReac Type Severity Reaction Status Date / Time No Known Allergies Allergy Verified 10/15/18 09:45 Home Medications: Home Medication List Medication Instructions Recorded Confirmed Last Taken Type ATORVAstatin [Lipitor] 80 mg PO QHS #30 tab 02/25/17 10/15/18 Unknown Rx Aspirin EC 81 mg PO DAILY #30 tab 02/25/17 10/15/18 Unknown Rx Pantoprazole [Protonix] 40 mg PO DAILY@0700 02/25/17 10/15/18 Unknown History Sildenafil [Viagra] 100 mg PO PRN PRN MDD 1 dose in 24 02/25/17 10/15/18 Unknown History hours Thiamine [Vitamin B-1] 100 mg PO DAILY #30 tab 02/25/17 10/15/18 Unknown Rx Acetaminophen 650 mg PO Q12H PRN PRN 10/15/18 10/15/18 Unknown History Latanoprost/Pf [Latanoprost 0.005% 7.5 ml OPHTHALMIC (EYE) DAILY 10/15/18 10/15/18 Unknown History Eye Drop] Multivitamin [Multivitamins] 1 ea PO DAILY 10/15/18 10/15/18 Unknown History Quetiapine [Seroquel] 150 mg PO QHS 10/15/18 10/15/18 Unknown History Amlodipine [Norvasc] 5 mg PO BID #60 tab 10/23/18 Unknown Rx Carvedilol 6.25 mg PO BID #60 tab 10/23/18 Unknown Rx Trazodone [Desyrel] 200 mg PO QHS #30 tab 10/23/18 Unknown Rx - History of Present Illness-Drug/Alcohol Nature of Presenting Problem: Patient is a 63 year old black male with history of alcohol and cocaine abuse who presents intoxicated complaining of diffuse abdominal pain and anxiety. Patient reports drinking 4 16oz beers at 2am today and then developed abdominal pain and anxiety. This episode of drinking or use began:: 4-6 hours ago Psychiatric Complaints: reports: anxiety Associated Symptoms: reports: chest pain Any injuries associated with this episode of intoxication?: No Similar Symptoms Previously?: Yes Recently seen or treated by another doctor?: No - Substance Abuse Substance Use: reports: alcohol - Overdose Suicide Risk Assessment: drug or ETOH abuse Review of Systems - Adult - REVIEW OF SYSTEMS - ADULT Constitutional: reports: see HPI Eyes: reports: no symptoms reported Ears, Nose, Mouth & Throat: reports: no symptoms reported Cardiovascular: reports: see HPI Respiratory: reports: no symptoms reported Gastrointestinal: reports: abdominal pain Genitourinary: reports: no symptoms reported Musculoskeletal: reports: no symptoms reported Integumentary: reports: no symptoms reported Neurological: reports: no symptoms reported Psychiatric: reports: anxiety, alcohol/drug dependence. denies: suicidal thoughts Endocrine: reports: no symptoms reported Hematologic/Lymphatic: reports: no symptoms reported Allergic/Immunologic: reports: no symptoms reported All Other Systems: Reviewed and Negative Past History - Adult - PAST MEDICAL HISTORY-ADULT Review of Records: reports: Old Records Reviewed, Nursing Assessment Review, Medications Reviewed, Social history reviewed & non-contributory. Major Childhood Illnesses: reports: denies history Cardiovascular: reports: CAD, HTN, hyperlipidemia Respiratory: reports: denies history Gastrointestinal: reports: GERD Obstetrical/Gynecological: reports: denies history Genitourinary: reports: denies history Musculoskeletal: reports: denies history Neurological: reports: denies history Psychiatric: reports: denies history Endocrine/Immune: reports: denies history Other Conditions: reports: denies history - PRIOR SURGERIES/PROCEDURES Surgical/Procedure History: reports: cardiac stent - IMMUNIZATION STATUS Childhood Immunizations: See Nurse Assessment Flu Vaccine: See Nurse Assessment - FAMILY HISTORY Family History: reviewed, not pertinent Physical Exam-General - CONSTITUTIONAL General Appearance: alert, other (smells of ETOH, slow mentation, ambulatory, nondiaphoretic) - EYES Eyes: other (clear) - HEAD, EARS, NOSE, MOUTH & THROAT HENMT: moist mucous membranes, normal ENT inspection - NECK Neck: non-tender, full range of motion, supple - RESPIRATORY Respiratory: lungs clear - CARDIOVASCULAR Cardiovascular: regular rate, rhythm - GASTROINTESTINAL (ABDOMEN) Abdominal Exam: soft, tenderness (difuse). negative: guarding, rebound - MUSCULOSKELETAL Back Exam: normal inspection, no CVA tenderness Extremity: normal range of motion, non-tender Peripheral Pulses: radial (R): 2+, radial (L): 2+ - SKIN Integumentary: normal color, normal turgor, warm/dry - NEUROLOGIC Neurologic: grossly normal, no motor/sensory deficits - PSYCHIATRIC Psych/Mental Status: anxious Progress - PLAN OF CARE/RESULTS Progress/Plan/Lab Results: Vital Signs - 8 hr 02/08/19 05:32 Temperature 98.2 F Pulse Rate 107 H Respiratory Rate 20 Blood Pressure 148/98 O2 Sat by Pulse Oximetry 100 Laboratory Results - last 24 hr 02/08/19 02/08/19 02/08/19 06:05 06:05 06:05 WBC 9.13 RBC 4.90 Hgb 15.0 Hct 43.5 MCV 88.8 MCH 30.6 MCHC 34.5 RDW Std Deviation 14.9 H Plt Count 240 MPV 9.0 Immature Gran % (Auto) 0.2 Neut % (Auto) 89.7 H Lymph % (Auto) 5.8 L [place] % (Auto) 4.1 Eos % (Auto) 0.1 Baso % (Auto) 0.1 Immature Gran # (Auto) 0.02 Neut # (Auto) 8.19 H Lymph # (Auto) 0.53 L [place] # (Auto) 0.37 Eos # (Auto) 0.01 Baso # (Auto) 0.01 Sodium Potassium Chloride Carbon Dioxide Anion Gap BUN Creatinine Estimated GFR/1.73 m2 BUN/Creatinine Ratio Glucose Calculated Osmolality Calcium Total Bilirubin AST ALT Alkaline Phosphatase Creatine Kinase 457 H Troponin T < 0.010 Total Protein Albumin Globulin Albumin/Globulin Ratio Lipase Plasma/Serum Ethyl Alc 02/08/19 02/08/19 06:05 06:05 WBC RBC Hgb Hct MCV MCH MCHC RDW Std Deviation Plt Count MPV Immature Gran % (Auto) Neut % (Auto) Lymph % (Auto) [place] % (Auto) Eos % (Auto) Baso % (Auto) Immature Gran # (Auto) Neut # (Auto) Lymph # (Auto) [place] # (Auto) Eos # (Auto) Baso # (Auto) Sodium 134 L Potassium 4.5 Chloride 100 Carbon Dioxide 17 L Anion Gap 17 BUN 14 Creatinine 1.4 H Estimated GFR/1.73 m2 52 BUN/Creatinine Ratio 10 Glucose 118 H Calculated Osmolality 270 Calcium 10.2 Total Bilirubin 0.30 AST 43 H ALT 30 Alkaline Phosphatase 123 H Creatine Kinase Troponin T Total Protein 7.7 Albumin 4.9 Globulin 3.0 Albumin/Globulin Ratio 2.0 Lipase 913 H Plasma/Serum Ethyl Alc 59 H Orders Category Date Time Status Cardiac Monitoring DIRECTED Care 02/08/19 05:55 Active FSBS/Accucheck Result NOW Care 02/08/19 05:59 Active Saline Loc DIRECTED Care 02/08/19 05:56 Active NPO Diet 02/08/19 05:[address] HEAD W/O CONTRAST [CT] Stat Exams 02/08/19 06:47 Ordered ALCOHOL BLOOD Stat Lab 02/08/19 06:05 Completed CBC WITH ELECTRONIC DIFF [HEME] Stat Lab 02/08/19 06:05 Completed CK PROFILE [SP CHEM] Stat Lab 02/08/19 06:05 Results COMPREHENSIVE METABOLIC PANEL [CHEM] Stat Lab 02/08/19 06:05 Completed LIPASE [CHEM] Stat Lab 02/08/19 06:05 Completed TROPONIN T Stat Lab 02/08/19 06:[address] W/POSS RFLX CULT [URINALYSIS] Stat Lab 02/08/19 06:41 Ordered URINE DRUG SCREEN PL Stat Lab 02/08/19 06:41 Ordered EKG [EKG] Stat Ther 02/08/19 05:56 Draft Result Diagrams: 02/08/19 06:05 02/08/19 06:05 - EKG 1 Time of EKG reading by physician:: 06:11 EKG Read and Signed by:: Reji Mcgrath Rate: 96 Rhythm: NSR QRS: normal VT Interval: normal ST Wave: normal Comments: no STEMI - CT/MRI 1 CT Study: Abdomen, Pelvis Impression: Abnormal, See EMR Report ([facility] - [address] [facility] [address] [place] [id number] [facility] - [address] [place] [address] Department of Imaging Patient: ROXANNE PINEDO Date: 02/08/19MR#: [id number] : 1955DM [id number] Age/Sex: 63/MRoom/Bed: Loc: P.ED Ordering Physician: Reji Mcgrath MD Family Physician: None,PCP Reason for Procedure: abdominal pain Signed EXAM: CT ABDOMEN/PELVIS W/O CONTRAST - 02/08/2019 HISTORY: abdominal pain TECHNIQUE: CT renal stone search without contrast COMPARISON: None. FINDINGS: There is no hydronephrosis or perinephric edema identified. There is no renal stone identified. There are peripancreatic inflammatory changes are suspicious for acute pancreatitis. There are no calcified gallstones identified. The liver is of diffusely decreased attenuation consistent with fatty infiltration. There is apparent small hiatal hernia. There is no evidence of bowel obstruction. The appendix is unremarkable. There is no free air. There are substantial lumbar spine degenerative changes noted. IMPRESSION: No evidence of renal stone or hydronephrosis. Peripancreatic inflammatory changes which are suspicious for acute pancreatitis. Fatty infiltration of liver. Apparent small hiatal hernia. No bowel obstruction. Substantial lumbar spine degenerative changes noted. This exam was performed using automated exposure control, adjustment of mA or kV according to patient size, and/or use of iterative reconstruction technique. Electronically signed by Austin Renee 02/08/2019 7:23 AM 02/08/19722 Interpreting Physician: Austin Renee MD Dictated Date/Time: 02/08/19717 cc: Reji Mcgrath MD; None,PCP) - CONSULTS/PCP/HOSPITALIST Notification #1 *Consult/PCP/Hospitalist*: Radha [employer] for Hospitalist Time Discussed: 07:28 Consult Disposition: Will see in ED, Admit - CHANGE OF SHIFT REPORT (ED Provider) 1 Report Given and Care Transferred to:: Dr. Powell Time of Transfer: 07:00 Items Pending: Labs Departure - Departure Date of Disposition Decision: 02/08/19 Time of Disposition Decision: 07:29 DIAGNOSIS: Acute pancreatitis Alcohol intoxication Qualifiers: Complication of substance-induced condition: uncomplicated Qualified Code(s): F10.920 - Alcohol use, unspecified with intoxication, uncomplicated Disposition: ADMITTED INPATIENT 09 Certified Medical Emergency: Emergent Condition: Fair Referrals and Follow-Ups: None,PCP [Primary Care Provider] - - Critical Care Note This patient required my direct & personal management of CC.: Yes Total Time (mins): 35 Critical Care Statement: This patient required my direct personal management to treat or rule out processes, the absence of which, could potentiallly result in sudden, clinically significant life or limb threatening deterioration. Attestation - Physician/ ASHA Attestation Patient care was provided by Advanced Practice Provider:: No The physician spent face to face time with patient:: Yes Advanced Practice Provider documentation review:: Supervising physician onsite and consulted in the evaluation and care of this patient. The physician did have a face to face encounter with the patient.
[2019-02-08 06:27] LABS: BASO# 0.01 X1000 (0.0-0.2); BASO% 0.1 % (0.0-0.8); EOS# 0.01 X1000 (0.0-0.7); EOS% 0.1 % (0.0-10.0); HEMATOCRIT 43.5 % (42.0-52.0); IMM GRAN# 0.02 X1000 (0.0-0.04); IMM GRAN% 0.2 % (0.0-0.5); LYMPH# 0.53 X1000 (1.2-3.4); LYMPH% 5.8 % (20.5-51.1); MCH 30.6 PG (27-31); MCHC 34.5 g/dL (33-37); MCV 88.8 FL (81-99); MONO# 0.37 X1000 (0.11-0.59); MONO% 4.1 % (1.7-9.3); NEUT# 8.19 X1000 (1.4-6.5); NEUT% 89.7 % (42.2-75.2); PLT 240 X1000 (130-400); RDW 14.9 % (11.5-14.5); WBC 9.13 X1000 (4.8-10.8)
--- NOTE | 2019-02-08 06:34 | EKG Report ---
Test Performed on : 02/08/2019 06:10:39 AM Test Reason : pain Blood Pressure : / mmHG Vent. Rate : 096 BPM Atrial Rate : 096 BPM P-R Int : 162 ms QRS Dur : 110 ms QT Int : 378 ms P-R-T Axes : 062 059 053 degrees QTc Int : 477 ms Normal sinus rhythm. Normal ECG When compared with ECG of 15-OCT-2018 13:57, No significant change was found Unconfirmed Result
[2019-02-08 06:42] LABS: ALBUMIN 4.9 g/dL (3.5-5.0); CALCIUM 10.2 mg/dL (8.8-10.2); CREATININE 1.4 mg/dL (0.7-1.2); POTASSIUM 4.5 mmol/L (3.5-5.1); TOTAL BILIRUBIN 0.3 mg/dL (0.20-1.00); TOTAL PROTEIN 7.7 g/dL (6.3-8.3)
[2019-02-08 06:52] LABS: BILIRUBIN URINE NEGATIVE (NEGATIVE); BLOOD URINE 1+ (NEGATIVE); CLARITY SL. CLOUDY (CLEAR); COLOR YELLOW; GLUCOSE URINE NEGATIVE (NEGATIVE); KETONE URINE 2+(Moderate) mg/dL (NEGATIVE); LEUKOCYTES URINE 1+ (NEGATIVE); NITRITE URINE NEGATIVE (NEGATIVE); PROTEIN URINE 2+(100 mg/dL) mg/dL (NEGATIVE); SP GRAVITY URINE 1.025; UROBILINOGEN URINE 4 mg/dL
[2019-02-08 06:54] LABS: URINE EPITHELIAL CELLS >10 /HPF (<10); URINE RBC <10 /HPF (<10)
[2019-02-08 06:55] LABS: URINE BACTERIA 2+ /HFP; URINE CAST NONE SEEN /LPF; URINE CRYSTAL NONE SEEN /HPF; URINE SOURCE CLEAN CATCH; URINE YEAST NONE SEEN /HPF
[2019-02-08] MEDS ORDERED: ATIVAN IV ONE (06:56)
[2019-02-08 07:07] LABS: CK INDEX 0.7 (0.0-2.5); CK-MB 3.26 ng/mL (0.0-5.0)
[2019-02-08 07:17] LABS: UR AMPHETAMINES QUAL NONE DETECTED (NONE DETECT); UR BARBITUATES QUAL NONE DETECTED (NONE DETECT); UR BENZODIAZEPIN QUAL NONE DETECTED (NONE DETECT); UR CANNABINOIDS QUAL PRESUMPTIVE POSITIVE (NONE DETECT); UR COCAINE QUAL NONE DETECTED (NONE DETECT); UR METHADONE QUAL NONE DETECTED (NONE DETECT); UR METHAMPHETAMINE QUAL NONE DETECTED (NONE DETECT); UR OPIATES QUAL NONE DETECTED (NONE DETECT); UR OXYCODONE QUAL NONE DETECTED (NONE DETECT); UR PCP QUAL NONE DETECTED (NONE DETECT); UR PROPOXYPHENE QUAL NONE DETECTED (NONE DETECT); UR TCA QUAL NONE DETECTED (NONE DETECT)
--- NOTE | 2019-02-08 07:20 | Diag Imaging Result Doc PS360 ---
EXAM: CT HEAD W/O CONTRAST - 02/08/2019 HISTORY: ams TECHNIQUE: CT head without contrast COMPARISON: 10/15/2018 FINDINGS: There is no evidence of intracranial hemorrhage, mass effect, midline shift, or hydrocephalus. There is no evidence of infarct, although acute infarcts may not be immediately visible. There is no evidence of skull fracture. IMPRESSION: No visible acute intracranial abnormality. No hemorrhage or mass effect. This exam was performed using automated exposure control, adjustment of mA or kV according to patient size, and/or use of iterative reconstruction technique. Electronically signed by Austin Renee 02/08/2019 7:18 AM
--- NOTE | 2019-02-08 07:26 | Diag Imaging Result Doc PS360 ---
EXAM: CT ABDOMEN/PELVIS W/O CONTRAST - 02/08/2019 HISTORY: abdominal pain TECHNIQUE: CT renal stone search without contrast COMPARISON: None. FINDINGS: There is no hydronephrosis or perinephric edema identified. There is no renal stone identified. There are peripancreatic inflammatory changes are suspicious for acute pancreatitis. There are no calcified gallstones identified. The liver is of diffusely decreased attenuation consistent with fatty infiltration. There is apparent small hiatal hernia. There is no evidence of bowel obstruction. The appendix is unremarkable. There is no free air. There are substantial lumbar spine degenerative changes noted. IMPRESSION: No evidence of renal stone or hydronephrosis. Peripancreatic inflammatory changes which are suspicious for acute pancreatitis. Fatty infiltration of liver. Apparent small hiatal hernia. No bowel obstruction. Substantial lumbar spine degenerative changes noted. This exam was performed using automated exposure control, adjustment of mA or kV according to patient size, and/or use of iterative reconstruction technique. Electronically signed by Austin Renee 02/08/2019 7:23 AM
[2019-02-08] MEDS ORDERED: BENADRYL IV ONE (07:34)
[2019-02-08] MEDS ORDERED: M.V.I.-12 10 ML, FOLIC ACID 1 MG, MAGNESIUM SULFATE 1 GM, THIAMINE 100 MG in NS 1,000 ML IV ONE (07:34)
[2019-02-08] MEDS ORDERED: ZOFRAN IV PRN (09:03)
[2019-02-08] MEDS ORDERED: ROBAXIN PO PRN (09:07)
[2019-02-08] MEDS ORDERED: BENTYL PO PRN (09:07)
[2019-02-08] MEDS ORDERED: ATARAX PO PRN (09:07)
[2019-02-08] MEDS ORDERED: ATIVAN IV PRN (09:08)
[2019-02-08] MEDS ORDERED: NS 1,000 ML IV SCH (09:15)
[2019-02-08] MEDS ORDERED: SODIUM CHLORIDE 0.9% INJ SCH (09:30)
[2019-02-08] MEDS ORDERED: PROTONIX IV SCH (09:30)
--- NOTE | 2019-02-08 09:43 | HISTORY AND PHYSICAL ---
CHIEF COMPLAINT: Abdominal pain, nausea and vomiting. HISTORY OF PRESENT ILLNESS: This is a 63-year-old gentleman with a history of prior CVA, hypertension, seizure disorder, CAD status post stent, and chronic alcohol abuse. He presented to the emergency room complaining of abdominal pain that started about 2 a.m. this morning. He felt dizzy shortly after. He stated that he started vomiting about 3 or 3:30 this morning. He does state that he drinks 6 to 10 16 ounce beers every night, sometimes more. His last drink was at 2 a.m. this morning. He stated that he stopped drinking because of the abdominal pain and the vomiting. He denied any chest pain, any palpitations, any black or bloody vomitus or stools or any prior episodes similar to this. PAST MEDICAL HISTORY: 1. CAD status post stent about 5 years ago in [place]. 2. Prior CVA. 3. Hypertension. 4. Seizure disorder. FAMILY HISTORY: Positive for sickle cell for a brother and sister, cancer in his grandmother and grandfather both maternal, hypertension in his parents. SOCIAL HISTORY: He smokes about a pack a day. He drinks 6 to 10 16 ounce beers daily. ALLERGIES: No known drug allergies. HOME MEDICATIONS: A list will be obtained by the nursing staff and once verified, we will review and restart as appropriate. REVIEW OF SYSTEMS: Discussed with the patient with pertinent positives stated in the HPI. He denied any syncope, any palpitations, any shortness of breath, cough, fever, chills, any black or bloody vomitus or stools, hematuria, dysuria, frequency, urgency. PHYSICAL EXAMINATION: GENERAL: This is a 63-year-old gentleman who is lying on the stretcher in the emergency room in no distress. VITAL SIGNS: Blood pressure is 143/95 with a heart rate of 105, respirations are 20, temperature is 98.2 degrees oral with room air saturations 99 to 100. EYES: Pupils are equal, round, react to light. EOMs are intact. Sclerae are anicteric. HEENT: Head is normocephalic, atraumatic. Mucous membranes are moist. NECK: Supple with trachea midline. CARDIOVASCULAR: Regular rate and rhythm. S1 and S2 appreciated. No murmurs. He has no lower extremity edema. Calves are nontender bilateral peripheral pulses palpable x4 extremities. PULMONARY: Breath sounds are clear. No increased work of breathing noted. Chest rises and falls symmetric with respiration. Chest wall is nontender to palpation. GASTROINTESTINAL: Abdomen is soft with diffuse tenderness, primarily at the right upper quadrant to epigastric region. Nondistended with bowel sounds in all 4 quadrants. NEUROLOGIC: He is alert and oriented x3. SKIN: Warm and dry. LABORATORY DATA: WBC is 9.1 with hemoglobin 15, hematocrit 43.5, and platelets of 240,000. Sodium 134, potassium 4.5, BUN 14, creatinine 1.4 with a glucose of 118. Troponin is negative. Lipase is 1595. Urinalysis has 10 to 20 microscopic white blood cells with greater than 10 epithelial cells. Urine drug screen is presumptive positive for cannabinoids. Blood alcohol is 59. IMAGIN. CT of the head reveals no visible acute intracranial abnormality, no hemorrhage or mass effect. 2. CT of the abdomen and pelvis reveals no evidence of renal stone or hydronephrosis. Pancreatic inflammatory changes suspicious for acute pancreatitis with fatty infiltration of the liver. Apparent small hiatal hernia. No bowel obstruction. ASSESSMENT AND PLAN: 1. Pancreatitis. The patient will be n.p.o. except for medications at present. IV hydration, Zofran for nausea. repeat amylase and lipase in the morning. 2. Nausea and vomiting secondary to #1. Zofran. The patient will be n.p.o. 3. Acute kidney injury. hydrate and recheck labs in the morning. 4. Known coronary artery disease status post stent. identify his home medications and continue as appropriate. He will be placed on telemetry. 5. Hypertension. monitor vital signs and give home medications as appropriate. 6. History of hyperlipidemia. 7. History of seizures. identify his home medications and continue as appropriate. 8. Chronic alcohol abuse. Librium taper with Ativan p.r.n. withdrawal and monitor. 9. History of chronic substance abuse with cocaine and marijuana. Urine drug screen was negative for cocaine. He was positive for marijuana. 10. Tobacco use and abuse. 11. For deep venous thrombosis prophylaxis, we will use SCDs. Holding off on any anticoagulation as we are unsure of status of varices. 12. Gastrointestinal prophylaxis. Protonix. We will check a CBC, a renal profile, amylase and lipase in the morning. Plan was discussed with Dr Christensen Further treatments pending hospital course. Dictated by VICTORIA Calero for Duarte Christensen MD cc: VICTORIA Calero MD [facility]
[2019-02-08 10:01] VITALS: BP 150/102
[2019-02-08] MEDS: LIBRIUM PO SCH ×2 (10:37→14:44)
[2019-02-08] MEDS ORDERED: XALATAN 0.005% OPH SOLN BOTH EYES SCH (16:15)
[2019-02-08] MEDS ORDERED: COREG PO SCH (21:00)
[2019-02-08] MEDS ORDERED: SEROQUEL PO SCH (21:00)
[2019-02-08] MEDS ORDERED: DESYREL PO SCH (21:00)
--- NOTE | 2019-02-08 23:44 | HISTORY AND PHYSICAL ---
ADDENDUM: Patient seen and examined by me. Full note dictated and discussed with nurse practitioner. The patient presented to the hospital with abdominal pain, subsequently diagnosed with pancreatitis. He has a known history of alcoholism, although he states he has not gone into withdrawal from alcohol. He does have a history of seizures. We have been prophylaxing with Librium. Otherwise keep him NPO, pain control, and we will follow. cc: Duarte Christensen MD
--- NOTE | 2019-02-09 04:43 | DISCHARGE SUMMARY ---
ADMISSION DATE: 02/08/2019 DISCHARGE DATE: 02/08/2019 DISCHARGE DIAGNOSES: 1. Patient left against medical advice only a few hours after getting admitted. 2. Chronic tobacco abuse. 3. Chronic alcohol abuse. 4. Pancreatitis. 5. Known coronary artery disease. 6. History of cerebrovascular accident. 7. History of seizure disorder. 8. Hypertension. CONSULTATIONS: None. PROCEDURES: None. BRIEF HOSPITAL COURSE: The patient is a 63-year-old male who has a known history of medical noncompliance as well as chronic alcoholism. Was admitted to the hospital with acute pancreatitis. Unfortunately, he declined to stay and be adequately treated and therefore left AMA. cc: Duarte Christensen MD
[2019-02-09] MEDS ORDERED: ASPIRIN EC PO SCH (09:00)
[2019-02-09] MEDS ORDERED: NORVASC PO SCH (09:00)
[2019-02-09] MEDS ORDERED: M.V.I.-12 10 ML, FOLIC ACID 1 MG, MAGNESIUM SULFATE 1 GM, THIAMINE 100 MG in NS 1,000 ML IV SCH (09:00)
[2019-02-09] MEDS ORDERED: VITAMIN B-12 PO SCH (09:00)
== END 2019-02-08 17:15 | disposition left against medical advice (07) | DRG 439 ==
LOC: P.ED 05:28 → P.MEDSURG 09:29
PROVIDERS: ATTEND Family Medicine

== ENCOUNTER 2019-02-08 18:10 | Inpatient (IN) ==
[2019-02-08] MEDS ORDERED: NS 1,000 ML IV ONE ×2 (18:28→20:22)
--- NOTE | 2019-02-08 18:46 | PROVIDER DOCUMENTATION ---
This chart was entered by Cortney Anguiano Scribe, acting as scribe for Ary Dai CRNP. HPI-Abdominal Pain/GI Problem - General Chief Complaint: Abdominal Pain Stated Complaint: HEADACHE AND STOMACH PAIN Time Seen by Provider: 02/08/19 18:24 Source: patient Allergies/Adverse Reactions: Patient Allergies Allergy/AdvReac Type Severity Reaction Status Date / Time No Known Allergies Allergy Verified 10/15/18 09:45 Home Medications: Home Medication List Medication Instructions Recorded Confirmed Last Taken Type Aspirin EC 81 mg PO DAILY #30 tab 02/25/17 02/08/19 Unknown Rx Pantoprazole [Protonix] 40 mg PO DAILY@0700 02/25/17 02/08/19 Unknown History Thiamine [Vitamin B-1] 100 mg PO DAILY #30 tab 02/25/17 02/08/19 Unknown Rx Acetaminophen 650 mg PO Q12H PRN PRN 10/15/18 02/08/19 Unknown History Quetiapine [Seroquel] 150 mg PO QHS 10/15/18 02/08/19 Unknown History Amlodipine [Norvasc] 10 mg PO DAILY 02/08/19 02/08/19 Unknown History Calcium Carbonate/Vitamin D3 2 tab PO DAILY 02/08/19 02/08/19 Unknown History [Calcium 500-Vit D3 200 Tablet] Carvedilol 0.5 tab PO BID 02/08/19 02/08/19 Unknown History Cyanocobalamin (Vitamin B-12) 1 cap PO DAILY 02/08/19 02/08/19 Unknown History [Vitamin B-12] Ferrous Gluconate 1 tab PO BID 02/08/19 02/08/19 Unknown History Latanoprost 0.005% Oph Soln 1 drp BOTH EYES DIRECTED 02/08/19 02/08/19 Unknown History [Xalatan 0.005% Oph Soln] Methocarbamol 1 tab PO TID PRN 02/08/19 02/08/19 Unknown History Mineral Oil/Petrolatum Cream 1 applicatn TOP DAILY 02/08/19 02/08/19 Unknown History [Eucerin Cream] Mirtazapine 1 tab PO HS 02/08/19 02/08/19 Unknown History Trazodone [Desyrel] 2 tab PO HS 02/08/19 02/08/19 Unknown History Triamcinolone 0.1% Cr [Kenalog 1 applicatn TOP DIRECTED 02/08/19 02/08/19 Unknown History 0.1% Cream] - History of Present Illness-ABD Nature of Presenting Problems: Pt is 63/M presenting to ED w/ diffuse abd pain. Pt was seen in ED this morning and admitted for acute pancreatitis. Pt left AMA an hr ago and decided that he did need the care and wants to be readmitted, so he is back in the ED for reevaluation. Abdominal Pain Onset Location: reports: generalized abdomen Pain Radiation: reports: no radiation Quality of Pain: reports: aching Severity in ED: reports: mild, moderate Timing: reports: still present Activities at Onset: reports: none Exposure to sick contacts?: No Modifying Factors: improves with: nothing Associated Symptoms: denies: diarrhea, nausea, vomiting Last BM: unsure Rectal Bleeding: reports: none Rectal Pain: reports: none Bruising or Bleeding Gums?: No Similar Symptoms Previously?: Yes Recently seen or treated by another doctor?: Yes Review of Systems - Adult - REVIEW OF SYSTEMS - ADULT Constitutional: reports: no symptoms reported. denies: chills, fever Eyes: reports: no symptoms reported Ears, Nose, Mouth & Throat: reports: no symptoms reported Cardiovascular: reports: no symptoms reported Respiratory: denies: cough, shortness of breath, wheezing Gastrointestinal: reports: abdominal pain. denies: diarrhea, nausea, vomiting Genitourinary: reports: no symptoms reported Musculoskeletal: reports: no symptoms reported Integumentary: reports: no symptoms reported Neurological: reports: no symptoms reported. denies: dizziness/vertigo, headache/migraines Psychiatric: reports: no symptoms reported Endocrine: reports: no symptoms reported Hematologic/Lymphatic: reports: no symptoms reported Allergic/Immunologic: reports: no symptoms reported All Other Systems: Reviewed and Negative Past History - Adult - PAST MEDICAL HISTORY-ADULT Review of Records: reports: Old Records Reviewed, Nursing Assessment Review, Medications Reviewed, Social history reviewed & non-contributory. Major Childhood Illnesses: reports: denies history Cardiovascular: reports: CAD, HTN, hyperlipidemia Respiratory: reports: denies history Gastrointestinal: reports: GERD Obstetrical/Gynecological: reports: denies history Genitourinary: reports: denies history Musculoskeletal: reports: denies history Neurological: reports: denies history Psychiatric: reports: denies history Endocrine/Immune: reports: denies history Other Conditions: reports: denies history - PRIOR SURGERIES/PROCEDURES Surgical/Procedure History: reports: cardiac stent - IMMUNIZATION STATUS Childhood Immunizations: See Nurse Assessment Flu Vaccine: See Nurse Assessment - FAMILY HISTORY Family History: reviewed, not pertinent - SOCIAL HISTORY Smoking: cigarettes, greater than 1 pack/day Provider spent 3-5 mins advising pt. on dangers of tobacco.: Discussed manners to quit use, and f/u contacts for add'l counseling. Substance Use: alcohol Alcohol Use Frequency: occasionally Living Situation: family Physical Exam-General - PHYSICAL EXAM-ADULT Initial Vital Signs Reviewed: Yes - CONSTITUTIONAL General Appearance: appears well, alert, mild distress - EYES Eyes: PERRL/EOMI, pink conjunctivae - HEAD, EARS, NOSE, MOUTH & THROAT HENMT: moist mucous membranes - NECK Neck: non-tender, full range of motion, supple, normal inspection - RESPIRATORY Respiratory: lungs clear - CARDIOVASCULAR Cardiovascular: tachycardia - GASTROINTESTINAL (ABDOMEN) Abdominal Exam: normal bowel sounds, soft, tenderness (diffuse tenderness) - LYMPHATIC Lymphatic: no adenopathy - MUSCULOSKELETAL Back Exam: normal inspection Extremity: normal range of motion, non-tender, normal gait, normal inspection - SKIN Integumentary: normal color, warm/dry - NEUROLOGIC Neurologic: grossly normal - PSYCHIATRIC Psych/Mental Status: normal mood/affect, normal thought content, normal thought process, oriented x 3 Progress - PLAN OF CARE/RESULTS Progress/Plan/Lab Results: Vital Signs - 8 hr 02/08/19 18:19 Temperature 98 F Pulse Rate 118 H Respiratory Rate 18 Blood Pressure 136/96 O2 Sat by Pulse Oximetry 99 Orders Category Date Time Status Saline Loc NOW Care 02/08/19 18:28 Active ALCOHOL BLOOD Stat Lab 02/08/19 18:28 Uncollected AMYLASE [CHEM] Stat Lab 02/08/19 18:28 Ordered CBC WITH ELECTRONIC DIFF [HEME] Stat Lab 02/08/19 18:28 Uncollected COMPREHENSIVE METABOLIC PANEL [CHEM] Stat Lab 02/08/19 18:28 Uncollected LIPASE [CHEM] Stat Lab 02/08/19 18:28 Uncollected 0.9% Sodium Chloride Inj [Ns] 1,000 ml Med 02/08/19 18:28 Active IV 999 mls/hr Result Diagrams: 02/08/19 19:00 02/08/19 19:00 Departure - Departure Date of Disposition Decision: 02/08/19 Time of Disposition Decision: 20:19 DIAGNOSIS: Acute pancreatitis Disposition: ADMITTED INPATIENT 09 Certified Medical Emergency: Emergent Condition: Stable Referrals and Follow-Ups: None,PCP [Primary Care Provider] - - Critical Care Note This patient required my direct & personal management of CC.: No Attestation - Physician/ ASHA Attestation Patient care was provided by Advanced Practice Provider:: Yes Advanced Practice Provider:: Ary Dai Advanced Practice Provider documentation review:: The Mid-level provider docume ntation, treatment plan and medical decision making was reviewed by the physician who agrees with all treatment and medical decision making by the MLP. The physician spent face to face time with patient:: No Advanced Practice Provider documentation review:: Supervising physician onsite and consulted in the evaluation and care of this patient. The physician did not have a face to face encounter with the patient. This chart was documented by the indicated scribe, (Cortney Anguiano, Juan M) and accurately reflects the services I performed and decisions made by , Ary Dai CRNP, as attested by the provider's signature.
[2019-02-08] MEDS ORDERED: MORPHINE IV ONE (19:16)
[2019-02-08] MEDS ORDERED: COREG PO ONE (19:16)
[2019-02-08] MEDS ORDERED: ZOFRAN IV ONE (19:17)
[2019-02-08 19:25] LABS: BASO# 0.01 X1000 (0.0-0.2); BASO% 0.1 % (0.0-0.8); EOS# 0.01 X1000 (0.0-0.7); EOS% 0.1 % (0.0-10.0); HEMATOCRIT 40.8 % (42.0-52.0); HEMOGLOBIN 13.8 g/dL (14.0-18.0); IMM GRAN# 0.02 X1000 (0.0-0.04); IMM GRAN% 0.3 % (0.0-0.5); LYMPH% 6.9 % (20.5-51.1); MCH 30.7 PG (27-31); MCHC 33.8 g/dL (33-37); MCV 90.7 FL (81-99); MONO% 8.3 % (1.7-9.3); MPV 9.2 FL (7.4-10.4); NEUT# 6.08 X1000 (1.4-6.5); NEUT% 84.3 % (42.2-75.2); PLT 206 X1000 (130-400); RDW 15.4 % (11.5-14.5); WBC 7.22 X1000 (4.8-10.8)
[2019-02-08 19:54] LABS: ALBUMIN 4.7 g/dL (3.5-5.0); CALCIUM 9.7 mg/dL (8.8-10.2); CREATININE 1.8 mg/dL (0.7-1.2); TOTAL BILIRUBIN 0.7 mg/dL (0.20-1.00)
[2019-02-08] MEDS ORDERED: APRESOLINE IV ONE (20:19)
[2019-02-08] MEDS ORDERED: ZOFRAN IV PRN (20:22)
[2019-02-08] MEDS ORDERED: MORPHINE IV PRN (20:22)
[2019-02-08] MEDS ORDERED: THORAZINE PO ONE (22:01)
[2019-02-08] MEDS ORDERED: ATIVAN IV PRN (23:47)
[2019-02-09] MEDS ORDERED: DILAUDID IV PRN (07:29)
[2019-02-09] MEDS ORDERED: TYLENOL PO PRN (07:30)
[2019-02-09] MEDS ORDERED: M.V.I.-12 10 ML, FOLIC ACID 1 MG, MAGNESIUM SULFATE 1 GM, THIAMINE 100 MG in NS 1,000 ML IV ONE (08:31)
[2019-02-09] MEDS ORDERED: SALINE LOCK IV FLUID XX ONE (08:31)
[2019-02-09] MEDS ORDERED: PHENOBARBITAL PO SCH (08:45)
[2019-02-09 08:52] LABS: HEMATOCRIT 38.3 % (42.0-52.0); HEMOGLOBIN 12.8 g/dL (14.0-18.0); MCH 30.3 PG (27-31); MCHC 33.4 g/dL (33-37); MCV 90.8 FL (81-99); MPV 8.8 FL (7.4-10.4); RBC 4.22 XMIL (4.7-6.1); RDW 15.7 % (11.5-14.5); WBC 7.51 X1000 (4.8-10.8)
[2019-02-09 09:06] LABS: ALBUMIN 3.9 g/dL (3.5-5.0); CREATININE 1.4 mg/dL (0.7-1.2); MAGNESIUM 2.4 mg/dL (1.5-2.7); POTASSIUM 4.3 mmol/L (3.5-5.1); TOTAL BILIRUBIN 0.4 mg/dL (0.20-1.00); TOTAL PROTEIN 6.8 g/dL (6.3-8.3)
[2019-02-09] MEDS ORDERED: XALATAN 0.005% OPH SOLN BOTH EYES SCH (09:30)
[2019-02-09] MEDS: COREG PO SCH ×2 (11:09→21:22)
[2019-02-09] MEDS: NORVASC PO SCH (11:09)
[2019-02-09] MEDS: NS 1,000 ML IV SCH ×2 (11:10→21:22)
--- NOTE | 2019-02-09 11:40 | HISTORY AND PHYSICAL ---
CHIEF COMPLAINT: Abdominal pain, nausea, and vomiting. HISTORY OF PRESENT ILLNESS: This is a 63-year-old gentleman with a history of prior CVA, hypertension, seizure disorder, CAD status post stent, and chronic alcohol abuse. He originally presented to the emergency room on 02/08/2019, was diagnosed with acute pancreatitis and was admitted to the hospital. He was admitted to the floor, reportedly became upset because he could not smoke and left AMA. He returned to the emergency room at 6 p.m. after being gone from the hospital approximately an hour to an hour and a half. Evidently the patient had eaten, had recurrence of nausea and vomiting, and an increase in his abdominal pain and returned for treatment. At the time of my exam, Mr. Donahue is calm. He is cooperative and he complains of 1/10 abdominal pain. He has no nausea or vomiting. Normally, he drinks 6 to 10 sixteen ounce beers every night. He was still drinking at 2 a.m. the morning of the and only stopped drinking because of the abdominal pain and vomiting. PAST MEDICAL HISTORY: 1. CAD status post stent about 5 years ago in [place]. 2. Prior cerebrovascular accident. 3. Hypertension. 4. Seizure disorder. 5. Pancreatitis diagnosed 02/08/2019. 6. Glaucoma. FAMILY HISTORY: Positive for sickle cell disease in a brother and a sister, cancer in his maternal grandmother and grandfather, and hypertension in his parents. SOCIAL HISTORY: He smokes a pack a day. He drinks 6 to 10 sixteen ounce beers daily. ALLERGIES: No known drug allergies. HOME MEDICATIONS: A list will be obtained by the nursing staff. Once reviewed will restart as appropriate. REVIEW OF SYSTEMS: Discussed with patient with pertinent positives stated in the HPI. He denied syncope, dizziness, chest pain, palpitations, shortness of breath, cough, fever, chills, any black or bloody vomitus or stools, any diarrhea, constipation, hematuria, dysuria, frequency, urgency. PHYSICAL EXAMINATION: GENERAL: This is a 63-year-old gentleman who is lying on the bed in no distress. VITAL SIGNS: Blood pressure is 138/80 with a heart rate of 92, respirations are 20 to 22, temperature is 98.4 degrees with room air saturations 98%. HEENT: Head is normocephalic, atraumatic. Mucous membranes are moist. NECK: Supple with trachea midline. CARDIOVASCULAR: Regular rate and rhythm. S1 and S2 appreciated. No murmurs. He has no lower extremity edema. Calves are nontender with peripheral pulses palpable x4 extremities. PULMONARY: Breath sounds are clear with no increased work of breathing noted. Chest rises and falls symmetric with respiration. Chest wall is nontender to palpation. GASTROINTESTINAL: Abdomen is soft with some epigastric and right upper quadrant tenderness, nondistended with bowel sounds in all 4 quadrants. NEUROLOGIC: He is alert and oriented x3. SKIN: Warm and dry. LABORATORY DATA: WBC is 7.2 with a hemoglobin of 13.8, hematocrit 40.8, platelets of 206,000. Sodium 138, potassium 5, BUN 20, creatinine 1.8 with a glucose of 102. Amylase 799, lipase is 1959. Of note, lipase was 1595 at 6 a.m. on the . Blood alcohol reveals none detected. ASSESSMENT AND PLAN: 1. Acute pancreatitis. The patient has been readmitted to the medical-surgical floor. He will be n.p.o. at present except for medications. continue with IV hydration, Zofran for nausea, Dilaudid for pain. Will repeat amylase and lipase in the morning. 2. Nausea and vomiting secondary to #1. Zofran. 3. Acute kidney injury. Creatinine actually increased from 1.4 to 1.8 . IV hydration. Hold any renal toxic medications and we will trend his labs daily. 4. Hypertension. monitor vital signs and give medications as appropriate. 5. Known coronary artery disease status post stent, aware. telemetry. continue medications as appropriate. 6. History of seizures. The patient has had no seizure activity while in the hospital. Continue to monitor and will continue home medications as appropriate. 7. Chronic alcohol abuse. banana bag, Ativan IV p.r.n. with a phenobarbital taper, and monitor for any withdrawal or delirium tremens. 8. History of chronic substance abuse with cocaine and marijuana. Urine drug screen was negative for cocaine, positive for marijuana. I have discussed with the patient the importance of stopping these drugs and he stated at this time he has no intentions of stopping. 9. Tobacco use and abuse. We did discuss tobacco cessation. The patient was given written materials on admission, although he states he has no dire desire to stop smoking. 10. For deep venous thrombosis prophylaxis, will use sequential compression devices, and gastrointestinal prophylaxis with Protonix. We will recheck a CBC, renal profile, amylase and lipase in the morning. Plan was discussed with Dr. Christensen. Further treatments pending hospital course. Dictated by VICTORIA Calero for Duarte Christensen MD cc: VICTORIA Calero MD [facility]
--- NOTE | 2019-02-09 12:10 | PROGRESS NOTE ---
DATE: 02/09/2019 SUBJECTIVE: The patient notes that he is feeling a little bit better. He states that he wants to go home. Denies any fevers or chills. PHYSICAL EXAMINATION: Vital Signs: Reviewed. Temperature 98.4 degrees, pulse 96, respiratory rate 18, blood pressure 138/86. General: Patient is awake, alert. He is in no current respiratory distress. HEENT: Normocephalic. Neck: Supple. Cardiovascular: Regular rate. Chest: Clear, nonlabored. Abdomen: Soft, tender epigastric although less than yesterday's exam. Extremities: Moves all extremities. Neurologic: No changes. ASSESSMENT: 1. Chronic alcoholism with acute withdrawal. 2. Acute pancreatitis. 3. Nausea and vomiting, improved. 4. Hypertension. 5. History of seizures. 6. History of polysubstance use and abuse with cocaine and marijuana. Currently urine drug screen positive for marijuana. 7. Chronic tobacco abuse. PLAN: Discussed with patient it is highly unlikely that his pancreatitis is going to resolve in 12 to 24 hours. Discussed that his lipase was well over 1000. Discussed the perils of untreated pancreatitis, chronic pancreatitis and . Discussed that he needs to stay in the hospital until his symptoms resolve. We will continue symptomatic treatment. Continue to monitor for withdrawal, place him on Librium and restart his blood pressure medicines. cc: Duarte Christensen MD
[2019-02-09] MEDS: PHENOBARBITAL PO SCH (17:59)
[2019-02-09] MEDS: REMERON PO SCH (21:21)
[2019-02-09] MEDS: SEROQUEL PO SCH (21:22)
[2019-02-10] MEDS: PHENOBARBITAL PO SCH ×3 (01:30→18:15)
[2019-02-10 05:44] LABS: HEMATOCRIT 35.6 % (42.0-52.0); HEMOGLOBIN 11.8 g/dL (14.0-18.0); MCH 30.3 PG (27-31); MCHC 33.1 g/dL (33-37); MCV 91.3 FL (81-99); MPV 8.9 FL (7.4-10.4); RBC 3.9 XMIL (4.7-6.1); RDW 15.5 % (11.5-14.5); WBC 7.6 X1000 (4.8-10.8)
[2019-02-10] MEDS: PROTONIX PO SCH (06:12)
[2019-02-10 06:35] LABS: AGAP 10; ALBUMIN 3.7 g/dL (3.5-5.0); ALKALINE PHOSPHATASE 95 U/L (32-122); AMYLASE 216 U/L (20-200); BUN 13 mg/dL (8-22); CALCIUM 8.7 mg/dL (8.8-10.2); CHLORIDE 108 mmol/L (98-107); COSMO 271; CREATININE 1.2 mg/dL (0.7-1.2); ESTIMATED GFR > 60; GLUCOSE 82 mg/dL (70-104); GOT 110 U/L (10-34); GPT 74 U/L (10-44); LIPASE 152 U/L (13-60); SODIUM 136 mmol/L (136-145); TCO2 19 mmol/L (25-35); TOTAL PROTEIN 6.5 g/dL (6.3-8.3)
--- NOTE | 2019-02-10 10:02 | PROGRESS NOTE ---
DATE: 02/10/2019 SUBJECTIVE: The patient complains of having some epigastric abdominal pain, although he reports improvement of his symptoms. OBJECTIVE: Vital Signs: Temperature 98.2 degrees, pulse 81 per minute, respiratory rate 18 per minute, blood pressure 123/73, pulse oximetry 98% on room air. General: The patient is alert and oriented x3. He does not appear to be in any acute distress. Cardiovascular System: First and second heart sounds are audible without any murmurs or gallops. Respiratory System: No respiratory distress noted. Bilateral lung air entry is good without any rales or rhonchi. Gastrointestinal: The abdomen is soft and nondistended. It is moderately tender on deep palpation in the epigastric area. There is some guarding but no rigidity. Normal bowel sounds are present. DIAGNOSTIC DATA: CBC shows WBC count of 7.60, hemoglobin 11.8, hematocrit 35.6, and platelet count of 141,000. Chemistry showed AST of 110, ALT 74, amylase 216, and lipase is 152. In comparison, his amylase and lipase were 434 and 427 respectively yesterday. IMPRESSION: 1. Acute pancreatitis. 2. Alcoholic hepatitis. 3. Hypertension. 4. Acid reflux. PLAN: The patient will be continued on a liquid diet and we are going to continue giving him current medications including IV fluids. He was having alcohol withdrawal on presentation, but currently he has not been having any withdrawals and we are going to continue giving him lorazepam on an as needed basis. Blood pressure has been under control and he will continue with amlodipine 10 mg daily along with carvedilol 3.125 mg twice daily. Furthermore, we are going to continue with pantoprazole 40 mg orally once daily for his acid reflux symptoms. We will continue to monitor his liver enzymes and amylase/lipase for his improvement. cc: Blanco Ivory MD
[2019-02-10] MEDS: COREG PO SCH ×2 (10:34→22:15)
[2019-02-10] MEDS: NORVASC PO SCH (10:34)
[2019-02-10] MEDS: ZOFRAN IV PRN (10:35)
[2019-02-10] MEDS: MAALOX PLUS LIQUID PO PRN (14:58)
[2019-02-10] MEDS: NS 1,000 ML IV SCH (14:59)
[2019-02-10] MEDS: REMERON PO SCH (22:16)
[2019-02-10] MEDS: SEROQUEL PO SCH (22:16)
[2019-02-11] MEDS: PHENOBARBITAL PO SCH ×3 (01:25→17:31)
[2019-02-11] MEDS: NS 1,000 ML IV SCH ×2 (05:44→20:27)
[2019-02-11] MEDS: PROTONIX PO SCH ×2 (06:13→09:30)
[2019-02-11 07:05] LABS: BASO# 0.01 X1000 (0.0-0.2); BASO% 0.1 % (0.0-0.8); EOS# 0.23 X1000 (0.0-0.7); EOS% 3.1 % (0.0-10.0); HEMATOCRIT 33.6 % (42.0-52.0); HEMOGLOBIN 11.1 g/dL (14.0-18.0); IMM GRAN# 0.02 X1000 (0.0-0.04); IMM GRAN% 0.3 % (0.0-0.5); LYMPH# 0.77 X1000 (1.2-3.4); LYMPH% 10.4 % (20.5-51.1); MCH 29.8 PG (27-31); MCV 90.3 FL (81-99); MONO# 0.77 X1000 (0.11-0.59); MONO% 10.4 % (1.7-9.3); MPV 9.8 FL (7.4-10.4); NEUT# 5.59 X1000 (1.4-6.5); NEUT% 75.7 % (42.2-75.2); PLT 142 X1000 (130-400); RBC 3.72 XMIL (4.7-6.1); RDW 15.1 % (11.5-14.5); WBC 7.39 X1000 (4.8-10.8)
[2019-02-11 07:24] LABS: AMYLASE 171 U/L (20-200); LIPASE 177 U/L (13-60)
[2019-02-11] MEDS: NORVASC PO SCH (09:30)
[2019-02-11] MEDS: COREG PO SCH ×2 (09:30→20:27)
--- NOTE | 2019-02-11 09:54 | PROGRESS NOTE ---
DATE: 02/11/2019 SUBJECTIVE: Patient feels better, although he still has some epigastric abdominal pain. OBJECTIVE: Vital Signs: Temperature 97.9 degrees, pulse 75 per minute, respiratory rate 18 per minute, blood pressure 119/82, pulse oximetry 100% on room air. General: Patient is alert and oriented x3. He does not appear to be in any acute distress. Cardiovascular System: First and second heart sounds are audible without any murmurs or gallops. Respiratory System: Bilateral lung air entry is good without any rales or rhonchi. Gastrointestinal: Abdomen is soft and moderately tender on deep palpation in the epigastric area. There is some guarding but no rigidity. Normal bowel sounds are present. DIAGNOSTIC DATA: CBC shows hemoglobin of 11.1 and hematocrit 33.6. Rest of the CBC is nondiagnostic. Comprehensive metabolic panel is nondiagnostic, and amylase levels have normalized to 171, and lipase levels are 177. In comparison, his amylase levels were 216 and lipase levels were 152 yesterday. IMPRESSION: 1. Acute pancreatitis. 2. Alcoholic hepatitis. 3. Hypertension. 4. Gastroesophageal reflux disease. PLAN: The patient will be continued with full liquid diet, and we are going to continue with IV fluids along with supportive care. His blood pressure has been within normal range, and we are going to continue with current antihypertensive medications along with PPI. He can probably be discharged home in the next 1 to 2 days if continues to improve. cc: Blanco Ivory MD
[2019-02-11] MEDS: ZOFRAN IV PRN (20:26)
[2019-02-11] MEDS: SEROQUEL PO SCH (20:27)
[2019-02-11] MEDS: REMERON PO SCH (20:27)
[2019-02-12] MEDS: NS 1,000 ML IV SCH ×2 (05:03→16:17)
[2019-02-12] MEDS: PROTONIX PO SCH ×2 (05:04→06:25)
[2019-02-12] MEDS: PHENOBARBITAL PO SCH (05:04)
[2019-02-12 06:32] LABS: BASO# 0.01 X1000 (0.0-0.2); BASO% 0.2 % (0.0-0.8); EOS# 0.26 X1000 (0.0-0.7); EOS% 4.2 % (0.0-10.0); HEMATOCRIT 36.4 % (42.0-52.0); HEMOGLOBIN 11.9 g/dL (14.0-18.0); IMM GRAN# 0.02 X1000 (0.0-0.04); IMM GRAN% 0.3 % (0.0-0.5); LYMPH% 14.5 % (20.5-51.1); MCH 29.8 PG (27-31); MCHC 32.7 g/dL (33-37); MONO# 0.83 X1000 (0.11-0.59); MONO% 13.4 % (1.7-9.3); MPV 9.7 FL (7.4-10.4); NEUT# 4.19 X1000 (1.4-6.5); NEUT% 67.4 % (42.2-75.2); PLT 171 X1000 (130-400); RDW 14.9 % (11.5-14.5); WBC 6.21 X1000 (4.8-10.8)
[2019-02-12 06:54] LABS: AGAP 10; ALBUMIN 3.8 g/dL (3.5-5.0); ALKALINE PHOSPHATASE 105 U/L (32-122); BUN 4 mg/dL (8-22); CALCIUM 9.4 mg/dL (8.8-10.2); CHLORIDE 107 mmol/L (98-107); COSMO 275; CREATININE 1.1 mg/dL (0.7-1.2); ESTIMATED GFR > 60; GLUCOSE 80 mg/dL (70-104); GOT 35 U/L (10-34); GPT 42 U/L (10-44); POTASSIUM 3.8 mmol/L (3.5-5.1); SODIUM 140 mmol/L (136-145); TCO2 24 mmol/L (25-35); TOTAL PROTEIN 7.2 g/dL (6.3-8.3)
[2019-02-12 07:01] LABS: AMYLASE 215 U/L (20-200); LIPASE 283 U/L (13-60)
[2019-02-12] MEDS: NORVASC PO SCH (08:05)
[2019-02-12] MEDS: COREG PO SCH ×2 (08:05→20:37)
[2019-02-12] MEDS: MAALOX PLUS LIQUID PO PRN (17:47)
[2019-02-12] MEDS: REMERON PO SCH (20:37)
[2019-02-12] MEDS: SEROQUEL PO SCH (20:37)
--- NOTE | 2019-02-12 20:40 | PROGRESS NOTE ---
DATE: 02/12/2019 SUBJECTIVE: The patient notes that he is doing okay, feeling better, still having some abdominal pain, but improved. States he has not really been able to eat or drink anything. He is nervous about going home. PHYSICAL EXAMINATION: Vital Signs: Reviewed. Temperature 97.7 degrees, pulse 82, respiratory rate 18, BP 126/92. General: Patient is awake, currently in no respiratory distress. HEENT: Normocephalic. Neck: Supple. Cardiovascular: Regular rate. No murmurs. Chest clear, nonlabored. Abdomen: Soft, minimally tender, much improved from admission. Epigastric region pain. Abdomen soft, nondistended. Extremities: Moves all extremities. ASSESSMENT: 1. Pancreatitis, improved. 2. Alcoholic hepatitis, improving. 3. Hypertension. 4. Chronic reflux. PLAN: We will continue patient in the hospital today, advance diet. If he tolerates hopefully he can discharge home tomorrow. cc: Duarte Christensen MD
[2019-02-13] MEDS: MAALOX PLUS LIQUID PO PRN ×3 (01:44→20:33)
[2019-02-13] MEDS: PROTONIX PO SCH (06:06)
[2019-02-13 06:34] LABS: BASO# 0.02 X1000 (0.0-0.2); BASO% 0.4 % (0.0-0.8); EOS# 0.22 X1000 (0.0-0.7); EOS% 3.9 % (0.0-10.0); HEMATOCRIT 32.6 % (42.0-52.0); HEMOGLOBIN 10.8 g/dL (14.0-18.0); IMM GRAN# 0.01 X1000 (0.0-0.04); IMM GRAN% 0.2 % (0.0-0.5); LYMPH# 0.89 X1000 (1.2-3.4); LYMPH% 15.7 % (20.5-51.1); MCH 29.7 PG (27-31); MCHC 33.1 g/dL (33-37); MCV 89.6 FL (81-99); MONO# 0.91 X1000 (0.11-0.59); MPV 9.3 FL (7.4-10.4); NEUT# 3.62 X1000 (1.4-6.5); NEUT% 63.8 % (42.2-75.2); PLT 189 X1000 (130-400); RBC 3.64 XMIL (4.7-6.1); RDW 14.9 % (11.5-14.5); WBC 5.67 X1000 (4.8-10.8)
[2019-02-13 06:54] LABS: AGAP 7; ALBUMIN 3.4 g/dL (3.5-5.0); ALKALINE PHOSPHATASE 94 U/L (32-122); BUN 10 mg/dL (8-22); CALCIUM 9.6 mg/dL (8.8-10.2); CHLORIDE 105 mmol/L (98-107); COSMO 277; CREATININE 1.1 mg/dL (0.7-1.2); ESTIMATED GFR > 60; GLUCOSE 111 mg/dL (70-104); GOT 24 U/L (10-34); GPT 31 U/L (10-44); SODIUM 139 mmol/L (136-145); TCO2 28 mmol/L (25-35); TOTAL PROTEIN 6.6 g/dL (6.3-8.3)
[2019-02-13] MEDS: NS 1,000 ML IV SCH (09:25)
[2019-02-13] MEDS: NORVASC PO SCH (09:26)
[2019-02-13] MEDS: COREG PO SCH ×2 (09:26→20:33)
--- NOTE | 2019-02-13 14:10 | PROGRESS NOTE ---
DATE: 02/13/2019 SUBJECTIVE: The patient reports abdominal pain is getting better. He is feeling somehow dizzy at times. He has been eating completely fine. He is concerned about going home today. OBJECTIVE: Vital Signs: Temperature 98.5 degrees, heart rate 78, respiratory 14, blood pressure 150/103, O2 saturation 100% on room air. General: This is a 63-year-old male, lying in bed, in no acute distress. Cardiovascular: S1, S2 heard. No murmurs, gallops, or rubs. Regular rate and rhythm. Respiratory: Clear bilaterally to auscultation. No work of breathing or using accessory muscles. Abdomen: Soft, a little bit tender to palpation in the epigastric area. No signs of peritoneal irritation. Extremities: No clubbing, cyanosis, or edema. Peripheral pulses present in both legs. Neurological: Patient alert and oriented x3. Moves 4 extremities. LABORATORY DATA: Reviewed. ASSESSMENT AND PLAN: 1. Acute pancreatitis, improving. We will continue with IV fluids and pain medication. 2. Alcoholic hepatitis. Condition is improving. 3. Hypertension. Blood pressure is a little bit higher. We will continue to monitor. 4. Chronic gastric acid reflux. We will continue with Protonix. 5. Disposition. I think if this patient continues to improve, he should be discharged tomorrow. cc: Bong Muller MD MTDD
[2019-02-13] MEDS: REMERON PO SCH (20:33)
[2019-02-13] MEDS: SEROQUEL PO SCH (20:33)
[2019-02-14 05:53] VITALS: BP 135/97
[2019-02-14] MEDS: PROTONIX PO SCH (06:04)
[2019-02-14] MEDS: MAALOX PLUS LIQUID PO PRN (06:04)
--- NOTE | 2019-02-15 14:48 | DISCHARGE SUMMARY ---
ADMISSION DATE: 02/09/2019 DISCHARGE DATE: 02/14/2019 ADMISSION DIAGNOSIS: 1. Acute pancreatitis. 2. Nausea, vomiting. 3. Acute kidney injury. 4. Hypertension. 5. Known CAD post stent. 6. History of seizures. 7. Chronic alcohol abuse. 8. History of chronic substance abuse with cocaine and marijuana. 9. Tobacco abuse. DISCHARGE DIAGNOSIS: 1. Acute pancreatitis, improving. 2. Alcoholic hepatitis. 3. Hypertension. 4. Chronic GERD. HOSPITAL COURSE: On 02/09/2019, Mr. Nico Donahue, a 63-year-old male, was admitted for complaints of abdominal pain, nausea and vomiting, diagnosed with acute pancreatitis. He originally went to the emergency department on the and was diagnosed with that and admitted to the hospital. He apparently got upset when he got to the floor. He could not smoke and left AMA, but then returned around 6 p.m., about an hour and a half after he left. Probably went and ate, had recurrence of nausea, vomiting, increased abdominal pain, and returned for treatment. Currently during admission he was cooperative and calm. The pain was not near as severe. It was reported that he drinks 6 to 10, 16 ounce beers every night but had stopped alcohol because of the pain. He was given IV fluids, Zofran for nausea and Dilaudid for pain. Kidney function went from 1.4 up to 1.8, but improved with IV fluid hydration. Hypertension was noted. Coronary disease but no chest pain, history of seizures but no seizures here. Chronic alcohol abuse, so he was started on banana bag, IV Ativan, and phenobarbital taper. He had a history of chronic substance abuse with cocaine, marijuana, but the urine drug screen was negative for cocaine but positive for marijuana. He was educated on cessation for that. Also educated on tobacco use and abuse cessation. He essentially remained in the hospital for treatment of the pancreatitis, eventually started on clear liquid diet. Alcohol withdrawals subsided with his phenobarbital taper. Antihypertensives were added for blood pressure management. His diet was advanced. Once he tolerated his advanced diet, he was discharged home today. DISCHARGE VITAL SIGNS: Temperature 98.3 degrees, heart rate 73, respiratory rate 18, blood pressure 135/97, O2 saturation 100% on room air. LABORATORY DATA: White blood cells 5000, hemoglobin 10, hematocrit 32, platelet count 189,000. Sodium 139, potassium 4.0, BUN 10, creatinine is 1.1, glucose 111, calcium 9.6, bilirubin 0.20, AST 24, ALT was 31, bilirubin 0.20, AST 24, ALT 31 inches, albumin 3.4. Her amylase, lipase were back down to 215 and 283. IMAGING: Actually, the imaging was from the day before he was admitted and it was an abdominal pelvic CT and showed peripancreatic inflammatory changes suspicious for acute pancreatitis and also fatty infiltration of the liver. He had a head CT at that time that was negative for any acute findings. DISCHARGE MEDICATIONS: 1. Seroquel 150 mg p.o. nightly. 2. Calcium carbonate 2 tabs p.o. daily. 3. Coreg 3.125 mg tablet p.o. twice daily. 4. Trazodone 200 mg p.o. nightly. 5. Mineral oil topical daily. 6. Ferrous gluconate 324 mg p.o. twice daily. 7. Kenalog topical daily. 8. Robaxin 500 mg p.o. t.i.d. 9. Mirtazapine 45 mg p.o. nightly. 10. Norvasc 10 mg p.o. daily. 11. Protonix 40 mg p.o. daily. 12. Vitamin B12 1000 mcg p.o. daily. 13. Xalatan 1 drop both eyes. 14. Aspirin 81 mg p.o. daily. 15. [place] 5 one tablet p.o. every 6 hours. 16. Vitamin B1 100 mg p.o. daily. DISCHARGE ACTIVITY: As tolerated. DISCHARGE DIET: Advance as tolerated. DISCHARGE INSTRUCTIONS: If your condition changes, contact physician and/or return to the emergency department. Changes may include, but are not limited to shortness of breath, increased fatigue, excessive bleeding, unexplained weight loss or gain, unimaginable pain, signs or symptoms of infection. PHYSICIAN FOLLOW-UP: Primary care provider. DISCHARGE DISPOSITION: Home. Dictated by VICTORIA Franco for Bong Muller MD Addendum: Patient seen and examined by myself. Agree with VICTORIA note. It reflects my assessment and plan. Patient is being released in stable condition to home. Will be seen by PCP in a week. cc: VICTORIA Franco MD [facility]
== END 2019-02-14 10:16 | disposition home or self-care (01) | DRG 439 ==
LOC: P.ED 18:10 → P.MEDSURG 22:07 → SUATTDRO 22:07
PROVIDERS: ATTEND Internal Medicine

== ENCOUNTER 2019-05-09 06:55 | Inpatient (IN) ==
[2019-05-09 07:48] LABS: BASO# 0.02 X1000 (0.0-0.2); BASO% 0.5 % (0.0-0.8); EOS# 0.06 X1000 (0.0-0.7); EOS% 1.6 % (0.0-10.0); HEMATOCRIT 40.5 % (42.0-52.0); HEMOGLOBIN 13.6 g/dL (14.0-18.0); IMM GRAN# 0.01 X1000 (0.0-0.04); IMM GRAN% 0.3 % (0.0-0.5); LYMPH% 20.7 % (20.5-51.1); MCH 30.6 PG (27-31); MCHC 33.6 g/dL (33-37); MCV 91.2 FL (81-99); MONO# 0.57 X1000 (0.11-0.59); MONO% 14.8 % (1.7-9.3); MPV 9.5 FL (7.4-10.4); NEUT% 62.1 % (42.2-75.2); PLT 306 X1000 (130-400); RBC 4.44 XMIL (4.7-6.1); WBC 3.86 X1000 (4.8-10.8)
--- NOTE | 2019-05-09 08:11 | PROVIDER DOCUMENTATION ---
HPI-Abdominal Pain/GI Problem - General Chief Complaint: Weakness Stated Complaint: ABD PAIN /NAUSEA / WEAK Time Seen by Provider: 05/09/19 07:09 Allergies/Adverse Reactions: Patient Allergies Allergy/AdvReac Type Severity Reaction Status Date / Time No Known Allergies Allergy Verified 10/15/18 09:45 Home Medications: Home Medication List Medication Instructions Recorded Confirmed Last Taken Type Aspirin EC 81 mg PO DAILY #30 tab 02/25/17 05/09/19 05/08/19 Rx Pantoprazole [Protonix] 40 mg PO DAILY@0700 02/25/17 05/09/19 05/08/19 History Thiamine [Vitamin B-1] 100 mg PO DAILY #30 tab 02/25/17 02/09/19 Unknown Rx Quetiapine [Seroquel] 150 mg PO QHS 10/15/18 05/09/19 05/08/19 History Amlodipine [Norvasc] 10 mg PO DAILY 02/08/19 05/09/19 05/08/19 History Calcium Carbonate/Vitamin D3 2 tab PO DAILY 02/08/19 05/09/19 05/08/19 History [Calcium 500-Vit D3 200 Tablet] Carvedilol 0.5 tab PO BID 02/08/19 05/09/19 05/08/19 History Cyanocobalamin (Vitamin B-12) 1 cap PO DAILY 02/08/19 05/09/19 05/08/19 History [Vitamin B-12] Ferrous Gluconate 1 tab PO BID 02/08/19 05/09/19 05/08/19 History Methocarbamol 1 tab PO TID PRN 02/08/19 05/09/19 05/08/19 History Mirtazapine 1 tab PO HS 02/08/19 05/09/19 05/08/19 History Trazodone [Desyrel] 2 tab PO HS 02/08/19 05/09/19 05/08/19 History Triamcinolone 0.1% Cr [Kenalog 1 applicatn TOP DIRECTED 02/08/19 05/09/19 05/08/19 History 0.1% Cream] - History of Present Illness-ABD Nature of Presenting Problems: patient stated he had history of pancreatitis and esophageal problem due to alcohol use, complained weakness and abdominal discomfort Abdominal Pain Onset Location: reports: epigastric Pain Radiation: reports: no radiation Quality of Pain: reports: none Severity in ED: reports: moderate Timing: reports: still present Exposure to sick contacts?: No Review of Systems - Adult - REVIEW OF SYSTEMS - ADULT Constitutional: reports: falguni. denies: fever Eyes: reports: no symptoms reported Ears, Nose, Mouth & Throat: reports: no symptoms reported Cardiovascular: reports: no symptoms reported Respiratory: reports: no symptoms reported Gastrointestinal: reports: abdominal pain, nausea Genitourinary: reports: no symptoms reported Musculoskeletal: reports: no symptoms reported Integumentary: reports: no symptoms reported Neurological: reports: no symptoms reported Psychiatric: reports: no symptoms reported Endocrine: reports: no symptoms reported Hematologic/Lymphatic: reports: no symptoms reported Allergic/Immunologic: reports: no symptoms reported Past History - Adult - PAST MEDICAL HISTORY-ADULT Review of Records: reports: Nursing Assessment Review Major Childhood Illnesses: reports: denies history Cardiovascular: reports: CAD, HTN, hyperlipidemia Respiratory: reports: denies history Gastrointestinal: reports: GERD Obstetrical/Gynecological: reports: denies history Genitourinary: reports: denies history Musculoskeletal: reports: denies history Neurological: reports: denies history Psychiatric: reports: denies history Endocrine/Immune: reports: denies history Other Conditions: reports: denies history - PRIOR SURGERIES/PROCEDURES Surgical/Procedure History: reports: cardiac stent - IMMUNIZATION STATUS Childhood Immunizations: See Nurse Assessment Flu Vaccine: See Nurse Assessment - FAMILY HISTORY Family History: reviewed, not pertinent Physical Exam-General - PHYSICAL EXAM-ADULT Initial Vital Signs Reviewed: No - CONSTITUTIONAL General Appearance: alert, no apparent distress - EYES Eyes: PERRL/EOMI - HEAD, EARS, NOSE, MOUTH & THROAT HENMT: normocephalic/atraumatic, normal ENT inspection - NECK Neck: non-tender, supple - RESPIRATORY Respiratory: lungs clear, normal breath sounds - CARDIOVASCULAR Cardiovascular: normal peripheral pulses, regular rate, rhythm, no edema, no gallop, no JVD - GASTROINTESTINAL (ABDOMEN) Abdominal Exam: normal bowel sounds, non tender - LYMPHATIC Lymphatic: no adenopathy - MUSCULOSKELETAL Back Exam: no CVA tenderness, no vertebral tenderness Extremity: non-tender - SKIN Integumentary: normal color, warm/dry - NEUROLOGIC Neurologic: production superintendent II-XII nml as tested, grossly normal, no motor/sensory deficits Progress - PLAN OF CARE/RESULTS Progress/Plan/Lab Results: Vital Signs - 8 hr 01/15/20 07:06 Temperature 98.6 F Pulse Rate 94 H Respiratory Rate 18 Blood Pressure 118/88 O2 Sat by Pulse Oximetry 99 Laboratory Results - last 24 hr 05/09/19 07:30 WBC 3.86 L RBC 4.44 L Hgb 13.6 L Hct 40.5 L MCV 91.2 MCH 30.6 MCHC 33.6 RDW Std Deviation 15.0 H Plt Count 306 MPV 9.5 Immature Gran % (Auto) 0.3 Neut % (Auto) 62.1 Lymph % (Auto) 20.7 [place] % (Auto) 14.8 H Eos % (Auto) 1.6 Baso % (Auto) 0.5 Immature Gran # (Auto) 0.01 Neut # (Auto) 2.40 Lymph # (Auto) 0.80 L [place] # (Auto) 0.57 Eos # (Auto) 0.06 Baso # (Auto) 0.02 Orders Category Date Time Status CBC WITH ELECTRONIC DIFF [HEME] Stat Lab 05/09/19 07:30 Completed COMPREHENSIVE METABOLIC PANEL [CHEM] Stat Lab 05/09/19 07:30 Received LIPASE [CHEM] Stat Lab 05/09/19 08:04 Ordered PROTIME WITH INR [COAG] Stat Lab 05/09/19 07:30 Received PTT [COAG] Stat Lab 05/09/19 07:30 Received TROPONIN T HIGH SENSITIVITY Stat Lab 05/09/19 08:04 Ordered TYPE & SCREEN [BBK] Stat Lab 05/09/19 07:30 Received GI Bleed (possible) Stat Oth 05/09/19 07:15 Ordered Result Diagrams: 05/09/19 07:30 05/09/19 08:30 Departure - Departure Date of Disposition Decision: 05/09/19 Time of Disposition Decision: 09:27 DIAGNOSIS: Dehydration Chronic pancreatitis Qualifiers: Pancreatitis type: alcohol induced Qualified Code(s): K86.0 - Alcohol-induced chronic pancreatitis Disposition: ADMITTED INPATIENT 09 Certified Medical Emergency: Emergent Condition: Good Referrals and Follow-Ups: None,PCP [Primary Care Provider] - - Critical Care Note This patient required my direct & personal management of CC.: No Attestation - Physician/ ASHA Attestation Patient care was provided by Advanced Practice Provider:: No The physician spent face to face time with patient:: Yes Advanced Practice Provider documentation review:: Supervising physician onsite and consulted in the evaluation and care of this patient. The physician did have a face to face encounter with the patient.
--- NOTE | 2019-05-09 08:11 | EKG Report ---
Test Performed on : 05/09/2019 07:16:37 AM Test Reason : ER Blood Pressure : / mmHG Vent. Rate : 086 BPM Atrial Rate : 086 BPM P-R Int : 184 ms QRS Dur : 116 ms QT Int : 446 ms P-R-T Axes : 064 033 039 degrees QTc Int : 533 ms Normal sinus rhythm. Prolonged QT Abnormal ECG When compared with ECG of 08-FEB-2019 06:10, QT has lengthened Unconfirmed Result
[2019-05-09 08:12] LABS: INR 0.98; PROTIME 13.5 Seconds (11.0-16.0)
[2019-05-09 08:13] LABS: PTT 30.2 Seconds (22.3-41.8)
[2019-05-09 09:14] LABS: ALBUMIN 4.3 g/dL (3.5-5.0); CALCIUM 9.7 mg/dL (8.8-10.2); CREATININE 2.9 mg/dL (0.7-1.2); TOTAL BILIRUBIN 0.6 mg/dL (0.20-1.00); TOTAL PROTEIN 7.8 g/dL (6.3-8.3)
[2019-05-09] MEDS ORDERED: NS 1,000 ML IV ONE (09:24)
--- NOTE | 2019-05-09 09:26 | ED EKG INTERP ---
This chart was entered by Jazmin Jeff Scribe, acting as scribe for Chelly Wilder MD. EKG Interpretation - EKG Time of EKG reading by physician:: 07:16 EKG Read and Signed by:: Chelly Wilder EKG Interpretation (*Must complete 3 of following elements*): Abnormal Rate: 86 Rhythm: NSR Post: normal [place] Interval: normal Comments: prolonged QT h Attestation - Physician/ ASHA Attestation The physician spent face to face time with patient:: Yes Advanced Practice Provider documentation review:: Supervising physician onsite and consulted in the evaluation and care of this patient. The physician did have a face to face encounter with the patient. This chart was documented by the indicated scribe, (Jazmin Jeff Scribe) and accurately reflects the services I performed and decisions made by me, Chelly iWlder MD, as attested by the provider's signature.
[2019-05-09] MEDS ORDERED: ROBAXIN PO PRN (09:42)
[2019-05-09] MEDS ORDERED: KENALOG 0.1% CREAM TOP SCH (09:45)
[2019-05-09] MEDS ORDERED: ATIVAN IV PRN (09:46)
[2019-05-09] MEDS ORDERED: ZOFRAN IV PRN (09:53)
[2019-05-09] MEDS ORDERED: BENTYL PO PRN (09:54)
[2019-05-09] MEDS ORDERED: ATARAX PO PRN (09:54)
[2019-05-09] MEDS: NS 1,000 ML IV SCH ×2 (10:00→16:59)
[2019-05-09] MEDS: M.V.I.-12 10 ML, FOLIC ACID 1 MG, MAGNESIUM SULFATE 1 GM, THIAMINE 100 MG in NS 1,000 ML IV SCH (10:38)
[2019-05-09] MEDS: LIBRIUM PO SCH ×3 (11:29→21:29)
[2019-05-09] MEDS ORDERED: KLOR-CON PO ONE (11:46)
[2019-05-09 11:54] LABS: UR AMPHETAMINES QUAL NONE DETECTED (NONE DETECT); UR BARBITUATES QUAL NONE DETECTED (NONE DETECT)
[2019-05-09 11:55] LABS: UR BENZODIAZEPIN QUAL NONE DETECTED (NONE DETECT); UR CANNABINOIDS QUAL PRESUMPTIVE POSITIVE (NONE DETECT); UR COCAINE QUAL NONE DETECTED (NONE DETECT); UR METHADONE QUAL NONE DETECTED (NONE DETECT); UR METHAMPHETAMINE QUAL NONE DETECTED (NONE DETECT); UR OPIATES QUAL NONE DETECTED (NONE DETECT); UR OXYCODONE QUAL NONE DETECTED (NONE DETECT); UR PCP QUAL NONE DETECTED (NONE DETECT); UR PROPOXYPHENE QUAL NONE DETECTED (NONE DETECT); UR TCA QUAL NONE DETECTED (NONE DETECT)
--- NOTE | 2019-05-09 12:55 | HISTORY AND PHYSICAL ---
PRIMARY CARE PROVIDER: No one. CHIEF COMPLAINT: Four days of weakness with epigastric pain that radiates into his left upper quadrant with nausea, vomiting and occasional dizziness with sweats. HISTORY OF PRESENT ILLNESS: Mr. Nico Donahue is a 63-year-old -Sud[place] male with a medical history of alcohol abuse, essentially drinks a case of beer a day with the last time being yesterday around 7 a.m. He states that he usually starts around 4 a.m.; but because of the fact that he has had a history of pancreatitis and now it appears that he has a chronic pancreatitis, maybe with mild acute exacerbation of it, he is here with nausea and vomiting. He states he can only drink. He has not been able to keep food down and has essentially been on an alcohol khadijah without food up until yesterday morning at 7. So, we will admit him and monitor for seizures. He does have a history of seizure disorder. We will do clear liquids for now and put him on a medication regimen to help prevent alcohol withdrawal. We will also put him on some IV fluid hydration. PAST MEDICAL HISTORY: 1. Esophagitis. 2. Alcohol abuse. 3. CAD with VT along with stent placed in 2013 in [place]. 4. History of CVA with no residua. 5. Hypertension. 6. Seizure disorder with last seizure being 6 months ago, according to him. 7. Chronic pancreatitis diagnosed February 08, 2019. 8. Glaucoma. SURGICAL HISTORY: 1. Cardiac stent. 2. Polypectomy during a colonoscopy. 3. Hemorrhoidectomy. SOCIAL HISTORY: He is a 3-noac-xbt-day smoker, started at the age of 19. Denies any chewing tobacco. Drinks a case of beer per day or more, usually starts around 4 a.m., last alcoholic beverage was yesterday 7 a.m. Smokes marijuana once a month, his last marijuana was yesterday. Not , no kids. He is not working. FAMILY HISTORY: Sickle cell disease in brother and sister. Mother had stomach cancer. Both parents had hypertension. There was cancer in both the maternal grandmother and maternal grandfather. ALLERGIES: No known drug allergies. HOME MEDICATIONS: Seroquel 150 mg p.o. nightly. Vitamin with calcium carbonate 2 times p.o. daily. Coreg 3.125 mg p.o. twice daily. Trazodone 200 mg p.o. nightly. Ferrous gluconate 324 mg p.o. twice daily. Kenalog topical. Robaxin 500 mg p.o. t.i.d. p.r.n. Mirtazapine 45 mg p.o. nightly. Norvasc 10 mg p.o. daily. Protonix 40 mg p.o. daily. Vitamin B12 1000 mcg p.o. daily. Aspirin enteric coated 81 mg p.o. daily. Thiamine 100 mg p.o. daily. REVIEW OF SYSTEMS: A 14-point review of systems are complete, and all are negative for those mentioned above HPI. PHYSICAL EXAMINATION: VITAL SIGNS: Temperature 98.5, heart rate 76, respiratory rate 16, blood pressure 127/88, O2 saturation 100% on room air, 5 feet 7 inches tall, 149 pounds, BMI 23.3. GENERAL: Mr. Nico Donahue is a 63-year-old -Sudanese male. He is trying to keep the blankets over his head, but otherwise he is in no acute distress and he is able to answer questions appropriately. He is quite demanding of the nurses' attention consistently asking for something to eat, something for hiccups. HEENT: Atraumatic, normocephalic. Pupils equal, round, reactive to light. Extraocular movements intact. Mucous membranes are dry. NECK: Trachea midline. CARDIOVASCULAR: S1 and S2. Regular rate and rhythm. No rubs, gallops or murmurs. No lower extremity edema. +2 dorsalis and radial pulses. Negative JVD or carotid bruits. PULMONARY: Clear to auscultate bilateral breath sounds. No accessory muscle use or work of breathing noted. ABDOMEN: Soft. Tender in the epigastric to left upper quadrant region. Positive bowel sounds x4. EXTREMITIES: Moves all extremities equally. Full range of motion. NEUROLOGIC: A and O x3. Follows commands. Sensory is intact. SKIN: Warm, dry and intact. LABORATORY DATA: WBC 3000, hemoglobin 13, hematocrit 40, platelet count 306,000. INR 0.98. Sodium 134, potassium 3.0, BUN 47, creatinine 2.9, glucose 116, calcium 9.7, magnesium 2.9, bilirubin 0.60, AST 36, ALT 28. Troponin 12. Albumin 4.3. Lipase 252. Cannabinoids positive. Alcohol 0. IMAGING: None. There is an EKG that shows normal sinus rhythm, rate 86, QTc 533. ASSESSMENT AND PLAN: 1. Acute on chronic pancreatitis that is alcohol induced. His lipase is not much different than what it normally is although, however, he is symptomatic. He has some nausea and vomiting that started yesterday. He feels weak. So, we are going to give him fluids IV. We will also give him a clear liquid diet with GI rest. Re-evaluate the lipase and amylase in the morning. Bowel movements are normal, otherwise he just has the nausea and vomiting. 2. Alcohol abuse. Last alcoholic beverage was yesterday at 7 a.m. So, now he has been over 24 hours without alcohol. His alcohol level is 0. We will do a Librium taper p.r.n. Ativan and banana bag started. 3. Tobacco abuse. Cessation discussed. 4. History of coronary disease with VT and stent placement 6 years ago. Continue aspirin and Coreg. 5. History of CVA. No new signs. 6. Seizure disorder. He is not on any antiepileptic drugs. His last seizure was 6 months ago. Most likely, this is alcohol induced. 7. Hypertension. We will continue with Coreg. 8. Acute kidney injury. IV fluids and hold any nephrotoxic medications. Dictated by VICTORIA Franco for Duarte Christensen MD cc: VICTORIA Franco MD
[2019-05-09] MEDS: FERGON PO SCH (20:35)
[2019-05-09] MEDS: SEROQUEL PO SCH (20:35)
[2019-05-09] MEDS: COREG PO SCH (20:36)
[2019-05-09] MEDS: DESYREL PO SCH (20:36)
[2019-05-09] MEDS: REMERON PO SCH (20:37)
--- NOTE | 2019-05-09 21:46 | HISTORY AND PHYSICAL ---
ADDENDUM: The patient is seen and examined by myself. Full note dictated and discussed with nurse practitioner and reviewed. The patient, unfortunately, is an intentionally noncompliant individual. He continues to drink essentially a case of beer a day for the last week or so. He has a known history of pancreatitis. We again discussed with him that pancreatitis is caused by his alcoholism. The patient on multiple different occasions, despite very explicitly discussing with him that all alcohol causes pancreatitis, continued to ask how much he could drink. I discussed with him in very explicit terms, absolutely none. I discussed that he needs to be NPO to allow his symptoms to improve. The patient asked if he can have a cheeseburger. I discussed that is considered eating and yes it would worsen his symptoms. Then he asked if he could have soup. Again, I discussed with him very explicitly that most people still consider that eating and yes it would also worsen his symptoms. We are going to place him in the hospital, replace his potassium, give him IV fluids. His creatinine is elevated at 2.9 with a baseline at 1.1. Discussed that antibiotics do not fix chronic pancreatitis. cc: Duarte Christensen MD
[2019-05-10] MEDS: NS 1,000 ML IV SCH ×3 (01:43→18:31)
[2019-05-10] MEDS: LIBRIUM PO SCH ×2 (04:41→10:05)
[2019-05-10 07:07] LABS: BASO# 0.02 X1000 (0.0-0.2); BASO% 0.7 % (0.0-0.8); EOS# 0.09 X1000 (0.0-0.7); HEMATOCRIT 31.8 % (42.0-52.0); IMM GRAN# 0.01 X1000 (0.0-0.04); IMM GRAN% 0.3 % (0.0-0.5); LYMPH# 0.64 X1000 (1.2-3.4); LYMPH% 21.1 % (20.5-51.1); MCH 29.8 PG (27-31); MCHC 31.4 g/dL (33-37); MCV 94.6 FL (81-99); MONO# 0.44 X1000 (0.11-0.59); MONO% 14.5 % (1.7-9.3); MPV 9.5 FL (7.4-10.4); NEUT# 1.83 X1000 (1.4-6.5); NEUT% 60.4 % (42.2-75.2); PLT 239 X1000 (130-400); RBC 3.36 XMIL (4.7-6.1); RDW 15.4 % (11.5-14.5); WBC 3.03 X1000 (4.8-10.8)
[2019-05-10 07:13] LABS: ALBUMIN 3.2 g/dL (3.5-5.0); CALCIUM 8.2 mg/dL (8.8-10.2); CREATININE 1.8 mg/dL (0.7-1.2); MAGNESIUM 2.5 mg/dL (1.5-2.7); POTASSIUM 3.8 mmol/L (3.5-5.1); TOTAL BILIRUBIN 0.4 mg/dL (0.20-1.00); TOTAL PROTEIN 5.9 g/dL (6.3-8.3)
[2019-05-10] MEDS: FERGON PO SCH ×2 (09:15→20:44)
[2019-05-10] MEDS: ASPIRIN EC PO SCH (09:15)
[2019-05-10] MEDS: CALTRATE 600 + D PO SCH (09:16)
[2019-05-10] MEDS: PROTONIX PO SCH (09:16)
[2019-05-10] MEDS: COREG PO SCH ×2 (09:16→20:44)
[2019-05-10] MEDS: VITAMIN B-12 PO SCH (09:16)
[2019-05-10] MEDS: M.V.I.-12 10 ML, FOLIC ACID 1 MG, MAGNESIUM SULFATE 1 GM, THIAMINE 100 MG in NS 1,000 ML IV SCH (09:17)
[2019-05-10] MEDS ORDERED: TUMS EXTRA STRENGTH PO ONE (14:51)
[2019-05-10] MEDS ORDERED: TUMS EXTRA STRENGTH PO PRN (14:51)
--- NOTE | 2019-05-10 20:22 | PROGRESS NOTE ---
DATE: 05/10/2019 SUBJECTIVE: The patient notes that he got nauseated this morning when he ate breakfast and does not feel comfortable going home. PHYSICAL EXAM: Vital signs: Temperature 98.1 degrees, pulse 76, respiratory rate 18, BP 108/62. General: The patient is in no current respiratory distress. He is sitting on the side of the bed. HEENT: Normocephalic. Neck: Supple. Cardiovascular: Regular rate. Chest: Clear. Abdomen: Soft. Minimally tender in the epigastric region. Extremities: Moves all extremities. Neurologic: No changes. ASSESSMENT: 1. Chronic pancreatitis with possibly an acute flare. 2. Intentional medical noncompliance. 3. Anemia of chronic disease. 4. Acute on chronic renal failure. Creatinine was 2.9 on admit, currently 1.8. PLAN: Given that his creatinine is still elevated, his amylase, lipase are both elevated, we are going to change him back to full liquids, which is what we had intended to do to start with. We will continue to wean his Librium. We will continue IV fluids. Recheck his labs in the a.m. Further orders as needed. cc: Duarte Christensen MD
[2019-05-10] MEDS: SEROQUEL PO SCH (20:44)
[2019-05-10] MEDS: REMERON PO SCH (20:44)
[2019-05-10] MEDS: DESYREL PO SCH (20:44)
[2019-05-11 06:52] LABS: BASO# 0.02 X1000 (0.0-0.2); BASO% 0.5 % (0.0-0.8); EOS# 0.15 X1000 (0.0-0.7); HEMATOCRIT 32.3 % (42.0-52.0); HEMOGLOBIN 10.2 g/dL (14.0-18.0); IMM GRAN# 0.01 X1000 (0.0-0.04); IMM GRAN% 0.3 % (0.0-0.5); LYMPH# 0.77 X1000 (1.2-3.4); LYMPH% 20.7 % (20.5-51.1); MCH 29.9 PG (27-31); MCHC 31.6 g/dL (33-37); MCV 94.7 FL (81-99); MONO# 0.56 X1000 (0.11-0.59); MONO% 15.1 % (1.7-9.3); MPV 9.8 FL (7.4-10.4); NEUT# 2.21 X1000 (1.4-6.5); NEUT% 59.4 % (42.2-75.2); PLT 246 X1000 (130-400); RBC 3.41 XMIL (4.7-6.1); RDW 15.4 % (11.5-14.5); WBC 3.72 X1000 (4.8-10.8)
[2019-05-11 07:10] LABS: ALBUMIN 3.3 g/dL (3.5-5.0); CALCIUM 9.2 mg/dL (8.8-10.2); CREATININE 1.4 mg/dL (0.7-1.2); MAGNESIUM 2.2 mg/dL (1.5-2.7); TOTAL BILIRUBIN 0.2 mg/dL (0.20-1.00); TOTAL PROTEIN 6.1 g/dL (6.3-8.3)
[2019-05-11] MEDS: PROTONIX PO SCH (08:36)
[2019-05-11] MEDS ORDERED: LIBRIUM PO SCH (09:00)
[2019-05-11 10:27] VITALS: BP 127/81
[2019-05-11] MEDS: VITAMIN B-12 PO SCH (10:58)
[2019-05-11] MEDS: FERGON PO SCH (10:58)
[2019-05-11] MEDS: COREG PO SCH (10:59)
[2019-05-11] MEDS: CALTRATE 600 + D PO SCH (10:59)
[2019-05-11] MEDS: ASPIRIN EC PO SCH (10:59)
--- NOTE | 2019-05-12 05:25 | DISCHARGE SUMMARY ---
ADMISSION DATE: 05/09/2019 DISCHARGE DATE: 05/11/2019 DISCHARGE DIAGNOSES: 1. Pancreatitis. 2. Chronic alcoholism. 3. Chronic intentional medical noncompliance. 4. History of seizure with the last one being 6 months ago per the patient. 5. History of chronic alcoholism. 6. History of chronic pancreatitis. 7. Coronary artery disease with a myocardial infarction with stent placed in 2014 in [place]. CONSULTATIONS: None. PROCEDURES: None. BRIEF HOSPITAL COURSE: The patient is a 63-year-old male who presented to [facility] program with an acute flare of his chronic pancreatitis. As noted on the HPI, patient unfortunately still is recalcitrant to the idea that alcoholism is causing his pancreatitis. He inquired how much could he drink before he would have a flare up. We attempted to keep him NPO to allow his pancreas to cool off. Again we were unsuccessful in this. Patient continued to demand that he be fed. He did attempt to eat and of course his symptoms were worse. Therefore, he agreed to not drink for a few hours. He was watched overnight. On discharge, he states his symptoms are improved and he is back to his usual self and therefore we are going to discharge him home. TIME SPENT: Greater than 30 minutes was spent in total care. We did again discuss with patient the importance of stopping drinking, of eating lower fat, low residue, smaller more frequent meals. cc: Duarte Christensen MD
--- NOTE | 2019-05-12 14:38 | DISCHARGE SUMMARY ---
ADMISSION DATE: 05/09/2019 DISCHARGE DATE: 05/11/2019 ADMISSION DIAGNOSES: 1. Acute on chronic pancreatitis, alcohol induced. 2. Chronic alcohol abuse. 3. Tobacco abuse. 4. History of coronary disease with [place] and stent placed 6 years ago. 5. History of cerebrovascular accident. 6. Seizure disorder. 7. Hypertension. 8. Acute kidney injury. DISCHARGE DIAGNOSES: 1. Chronic pancreatitis with possibly an acute flare. 2. Intentional medical non compliance. 3. Anemia of chronic disease. 4. Acute on chronic kidney disease. CONSULTATIONS: Surgery procedures. HOSPITAL COURSE: Mr. Nico Donahue is a 63-year-old male with medical history of alcohol abuse with alcohol induced pancreatitis. Essentially drinks a case of beer a day with the last time being the day before he had presented with these complaints. He complains of 4 days worth of weakness, epigastric pain that radiated to his left upper quadrant with nausea, vomiting, occasional dizziness with sweats. He did have elevation in his pancreatic enzymes. He was started on IV fluid hydration and clear liquids. To prevent alcohol withdrawals, he was started on Librium taper as well. It is noted that he tends to be quite noncompliant. Initially was started on clear liquids, then he was made NPO, but he was essentially advanced to clear liquid diet then a full liquid diet. He can continue with a chronically elevated amylase and lipase, but acute kidney injury resolved or improved. He is going to be discharged home. DISCHARGE VITAL SIGNS: Temperature 98.0 degrees, heart rate 61, respiratory rate 20, blood pressure 127/81, O2 saturation 98% on room air. DISCHARGE LAB DATA: White blood cells 3000, hemoglobin 10, hematocrit 32, platelet count 246,000. Sodium 139, potassium 4.0, BUN 25, creatinine is 1.4, glucose 106, calcium 9.2, bilirubin 0.20, AST 26, ALT 22, alkaline phosphatase is 99, albumin 3.3, amylase 231, lipase 207. IMAGING: None. He had an EKG, sinus rhythm, rate 86, QTc 533. DISCHARGE MEDICATIONS: 1. Seroquel 150 mg p.o. nightly. 2. Tums 2 tablets p.o. daily. 3. Coreg 3.125 mg p.o. twice daily. 4. Trazodone 200 mg p.o. nightly. 5. Ferrous gluconate 324 mg p.o. twice daily. 6. Kenalog cream topical. 7. Methocarbamol 500 mg p.o. t.i.d. p.r.n. 8. Mirtazapine 45 mg p.o. nightly. 9. Amlodipine 10 mg p.o. daily. 10. Protonix 40 mg p.o. daily. 11. Vitamin B12 1000 mcg p.o. daily. 12. Aspirin enteric-coated 81 mg p.o. daily. 13. [place] 7.5 one tablet p.o. every 12 hours p.r.n. 14. Thiamin 100 mg p.o. daily. PHYSICIAN FOLLOW-UP: Primary care provider. DISCHARGE ACTIVITY: As tolerated. DISCHARGE DIET: Advance as tolerated. DISCHARGE INSTRUCTIONS: If her condition changes, contact physician and/or return to the emergency department. Changes may include, but are not limited to, shortness of breath, increased fatigue, excessive bleeding, unexplained weight loss or gain, unmanageable pain, signs or symptoms of infection. DISCHARGE DISPOSITION: Home. Dictated by VICTORIA Franco for Duarte Christensen MD cc: VICTORIA Franco MD
== END 2019-05-11 12:00 | disposition home or self-care (01) | DRG 439 ==
LOC: P.ED 06:55 → P.MEDSURG 10:38
PROVIDERS: ATTEND Family Medicine